=== PATIENT | male | born 1975 | race Two or more races ===

== ENCOUNTER 2021-03-21 12:35 | Outpatient (REF) | payer OTHER, SELFPAY ==
[2021-03-21 15:53] LABS: Binax Internal Control QC Valid; Binax Now Covid-19 Ag Positive (Negative)
== END 2021-03-21 12:36 | disposition home or self-care (01) ==
LOC: HO.LAB 12:35
PROVIDERS: Visit Provider Internal Medicine
DX: Z20.822 Contact with and (suspected) exposure to COVID-19 (principal)
CPT/HCPCS: C9803

== ENCOUNTER 2023-07-02 14:48 | Outpatient (AMB) | payer OTHER, SELFPAY ==
--- NOTE | 2023-07-02 14:49 | MHC.PC.OV ---
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 Accompanied by: Spouse Allergies No Known Allergies Allergy (Verified 07/02/23 14:56) Medication List - Last Reconciled 07/02/23 by Navneet Sood MD blood sugar diagnostic (FreeStyle Test strips) As directed glipizide 10 mg PO BID losartan 50 mg PO DAILY omeprazole 40 mg PO DAILY sitagliptin phosphate (Januvia) 50 mg PO DAILY sumatriptan succinate take 1 tab at onset of headache; if no relief may repeat 1 tab after at least 2 hrs; max = 4 tabs/24 hr PO Tobacco use date assessed: 07/02/23 Dental Screening Dental Screen Date: 07/02/23 Did you have a dental visit in the last 12 months?: Yes Did you have a dental problem in the last 6 months where you did not have access to dental care?: No Was dental information given to patient?: Patient has dentist 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 CPE > 1 yr Acute issue(s): Diabetes -A1c today 9.8%. Had been on metformin 1000mg before. Gynecomastia PMHx: Diabetes, Depression/anxiety, GERD, Migraines, Arthritis , hypertension SurgHx: FHx: SocHx: PFSH Medical History (Updated 07/02/23 @ 16:00 by Javier Morrow) Depression Anxiety Arthritis Acid reflux Migraines Diabetes Surgical History (Updated 07/02/23 @ 15:09 by Keara sEtrada CMA) No pertinent past surgical history Family History (Updated 07/02/23 @ 15:14 by Keara Estrada CMA) Mother Mental health disorder High blood pressure Diabetes Maternal Aunt Mental health disorder Sister Mental health disorder Father High blood pressure Cardiovascular disease Maternal Grandmother Diabetes Social History Housing: Apartment Patient Tobacco Use Status: Current everyday Tobacco user Cigarettes Per Day: 10 e-Cigarette/Vaping Use: Never Used service: No Current occupational status: employed 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 Cognitive needs: No Hearing needs: No Vision needs: Yes (Patient wears prescription glasses) Questionnaire PHQ-9 Over the last 2 weeks, how often have you been bothered by any of the following problems? 1. Little interest or pleasure in doing things: not at all 2. Feeling down, depressed, or hopeless: more than half the days 3. Trouble falling or staying asleep, or sleeping too much: not at all 4. Feeling tired or having little energy: several days 5. Poor appetite or overeating: not at all 6. Feeling bad about yourself - or that you are a failure or have let yourself or your family down: several days 7. Trouble concentrating on things, such as reading the newspaper or watching television: not at all 8. Moving or speaking so slowly that other people could have noticed. Or the opposite - being so fidgety or restless that you have been moving around a lot more than usual: not at all 9. Thoughts that you would be better off or of hurting yourself in some way: not at all Total score: 4 Depression Screening Interpretation: Negative Depression Screening Done: Yes 79814 - PHQ-9 Billing: Yes Source: Developed by Drs. Hawk Feldman, Any Darby, Avinash Harrsi and colleagues, with an educational israel from [employer]. Thrive Questionnaire Date Thrive assessed: 07/02/23 I am a: Patient What is your living situation today?: I have a steady place to live Within the past 12 months, did the food you bought not last and you didn't have the money to get more?: Sometimes True Within the past 12 months, did you worry whether your food would run out before you got money to buy more?: Sometimes True Do you have trouble paying for medicines?: Yes Do you have trouble getting transportation to medical appointments?: No Do you have trouble paying your heating and electricity bill?: No Do you have trouble taking care of your child, family member or friend?: No Do you have trouble with day-to-day activities such as bathing, preparing meals, shopping, managing finances, etc.?: No Are you currently unemployed and looking for a job?: No Are you interested in more education?: No THRIVE Score: 2 AUDIT C Alcohol Use Questionnaire (AUDIT-C) 1. How often do you have a drink containing alcohol?: Monthly or less 2. How many drinks containing alcohol do you have on a typical day when you are drinking?: 3 or 4 3. How often do you have six or more drinks on one occasion?: Never Total Score: 2 ANH-7 AMB Questionnaire ANH-7 Date ANH - 7 assessed: 07/02/23 Feeling nervous, anxious, or on edge: 1 = Several days Not being able to stop or control worryin = More than half the days Worrying too much about different things: 2 = More than half the days Trouble relaxin = Several days Being so restless that it is hard to sit still: 0 = Not at all Becoming easily annoyed or irritable: 1 = Several days Feeling afraid as if something awful might happen: 0 = Not at all Total ANH-7 score (0-4 normal; 5-9 mild; 10-14 moderate; 15-21 severe): 7 Source: Developed by Drs. Hawk Feldman, Any Darby, Avinash Harris and colleagues, with an educational israel from [employer]. ANH-7 Assessment Billing ANH-7 Assessment Tool: ANH-7 Assessment 22185 Review of Systems Const Denies chills, Denies fatigue, Denies fever(s), Denies headache(s) and Denies weakness ENT Denies dizziness and Denies headache(s) Card Denies chest pain, Denies lightheadedness, Denies dyspnea and Denies other (Palpitations) Resp Denies cough, Denies dyspnea, Denies wheezing and Denies other ( shortness of breath) Musc Denies numbness and Denies tingling Neuro Denies dizziness, Denies headache(s), Denies numbness, Denies tingling, Denies paresthesias and Denies weakness Psych Denies anxiety and Denies depression Endo Denies fatigue Aller/Immun Denies wheezing Physical exam (Primary Care) Vital Signs: Last Vital Signs Pulse 88 07/02/23 14:52 BP 122/70 07/02/23 14:52 Pulse Ox 98 07/02/23 14:52 Oxygen Delivery Method Room Air 07/02/23 14:52 BMI result Body Mass Index 27.2 Tobacco/Smoking Status: Tobacco use Status Tobacco use date assessed 07/02/23 07/02/23 15:23 Patient Tobacco Use Status Current everyday Tobacco 07/02/23 15:23 e-Cigarette/Vaping Use Never Used 07/02/23 15:23 PHQ-9: PHQ-9 Score PHQ-9: Total score 4 07/02/23 15:32 Depression Screening Interpretation: Negative Thrive Assessment: Date of Thrive Assessment Date Thrive assessed 07/02/23 07/02/23 15:23 Const General: no acute distress and well developed Nutritional Appearance: well nourished Orientation/consciousness: patient oriented x3 HENMT Head: Yes normocephalic and Yes atraumatic Eyes General: appearance normal, both eyes and all related structures Pupils: Equal, round and reactive pupils present EOM: EOMs intact bilaterally Resp Effort & Inspection: normal respiratory effort Auscultation: clear to auscultation bilaterally Cardio Rate: regular rate Rhythm: regular rhythm Heart sounds: S1 normal heart sound present, S2 normal heart sound present, no gallops, no murmurs and no rubs Neuro General: patient oriented x3 and gait normal Cranial nerves: Yes Equal, round and reactive pupils present Psych Affect: normal affect Results AMB Hemoglobin A1c AMB Hemoglobin A1c 9.8 % Last Edit by Keara Estrada CMA on 07/02/23 15:32 Results Reviewed Results Reviewed: Laboratory Last Values Hgb A1c (Clinic) 9.8 % (4.0-6.0) H 07/02/23 15:30 Assessment and Plan Assessment & Plan (1) Body aches: Code(s): R52 - Pain, unspecified Plan: As?above Follow-up?labs Will?continue?to?follow (2) Uncontrolled diabetes mellitus with hyperglycemia: Code(s): E11.65 - Type 2 diabetes mellitus with hyperglycemia Plan: A1c?9.8%?today.??He?says?it?was?higher?at?a?prior?check. Says?it?had?gotten?up?down?to?about?7.7%?which?is?still?poor?control. Continue?glipizide?and?Januvia. Resume?metformin?750?mg?b.i.d.?though?he?will?titrate?up?from?lower?doses. Will?follow-up?at?his?next?visit?to?see?if?he?was?able?to?get?to?750?mg?b.i.d..??He?was?not?able?to?tolerate?1000?mg?b.i.d.. Work?on?diabetic?diet. Work?on?consistency?with?medications Encouraged?him?to?test?at?least?in?the?mornings.??Asked?him?to?bring?in?a?log?of?his?morning?blood?sugars?and?any?other?blood?sugar?testing?he?does. (3) Gynecomastia: Code(s): N62 - Hypertrophy of breast Plan: A?right?breast?gynecomastia Check?labs?including?prolactin?and?testosterone Check?mammogram (4) Cervicalgia: Code(s): M54.2 - Cervicalgia Plan: Cervicalgia?and?body?as?well?as?lower?extremity?neuropathic?pain. Neck?and?posterior?scalp?pain?appears?to?be?secondary?to?muscle?tension?and?strain Start?physical?therapy Will?follow-up?in?continue?to?work?on?this?with (5) Migraines: Code(s): G43.909 - Migraine, unspecified, not intractable, without status migrainosus Plan: Follow-up?with?Neurology (6) Laboratory exam ordered as part of routine general medical examination: Code(s): Z00.00 - Encounter for general adult medical examination without abnormal findings Plan: Check?labs Orders: Orders Comprehensive [place]. Panel Fast Today Z00.00 - Encounter for general adult medical examination without abnormal findings Complete Blood Count Auto Diff Today Z00.00 - Encounter for general adult medical examination without abnormal findings Microalbumin, Random (w Creat) Today I10 - Essential (primary) hypertension Prostate Specific Antigen Scr Today Z12.5 - Encounter for screening for malignant neoplasm of prostate Erythrocyte Sedimentation Rate Today R52 - Pain, unspecified CRP High Sensitivity Today R52 - Pain, unspecified Prolactin Today N62 - Hypertrophy of breast MM diagnostic mammo BI Today N62 - Hypertrophy of breast AMB Hemoglobin A1c Today Z13.9 - Encounter for screening, unspecified Lipid Panel Today Z00.00 - Encounter for general adult medical examination without abnormal findings UA and rflx microscopic Today Z00.00 - Encounter for general adult medical examination without abnormal findings TSH reflex Free T4 Today Z00.00 - Encounter for general adult medical examination without abnormal findings Vitamin D 25-OH Total Today E55.9 - Vitamin D deficiency, unspecified Testosterone, Free/Total Today N62 - Hypertrophy of breast US breast RT complete Today N62 - Hypertrophy of breast Coding Level of Care Code New Pt Level 4 (32017) Diagnoses Body aches R52 Uncontrolled diabetes mellitus with hyperglycemia E11.65 Gynecomastia N62 Cervicalgia M54.2 Migraines G43.909 Laboratory exam ordered as part of routine general medical examination Z00.00 Additional Codes ANH-7 Assessment Billing - ANH-7 Assessment Tool: ANH-7 Assessment [id number] ([id number])
[2023-07-02 14:52] VITALS: BP 122/70; PULSE 88; O2SAT 98; BMI 27.2
== END 2023-07-02 16:26 | disposition home or self-care (01) ==
PROVIDERS: PCP Family Medicine; Visit Provider Family Medicine
DX: E11.65 Type 2 diabetes mellitus with hyperglycemia (principal); N62 Hypertrophy of breast; M54.2 Cervicalgia; G43.909 Migraine, unspecified, not intractable, without status migrainosus
CPT/HCPCS: 83036; 99204

== ENCOUNTER 2023-07-16 13:43 | Outpatient (REF) | payer OTHER, SELFPAY ==
--- NOTE | ~2023-07-16 | US_ITS ---
EXAMINATION: MM DIAGNOSTIC DIGITAL BREAST TOMOSYNTHESIS, BILATERAL US BREAST LIMITED, RIGHT MAMMOGRAPHY: CLINICAL INFORMATION: 47-year-old male, right breast pain and swelling times approximately 1 month. COMPARISON: Mammography: No prior. TECHNIQUE: Digital breast tomosynthesis is performed in both the craniocaudal and mediolateral oblique views along with computer-aided detection (CAD). Synthesized 2D images are generated from the tomosynthesis. FINDINGS: The breasts are almost entirely fatty (ACR BI-RADS breast composition Category a). There is retroareolar flame like opacity in the right breast highly suggestive of gynecomastia. Left breast appears grossly normal mammographically. There are no masses, regions of architectural distortion, or suspicious calcification in either breast. ULTRASOUND: CLINICAL INFORMATION: Right breast swelling and tenderness. COMPARISON: None TECHNIQUE: Targeted sonographic evaluation of the right breast was performed using a high frequency linear transducer. The left retroareolar region was scanned for comparison. Selected archived documentation. FINDINGS: RIGHT BREAST: -There is moderate development normal-appearing retroareolar breast tissue on the right, findings consistent with right gynecomastia. There is a trace amount of left retroareolar breast tissue development. There is no mass, cystic abnormality, or abnormal shadowing. No skin thickening is noted. US/US breast RT limited mamm only IMPRESSION: -No findings suspicious for malignancy in either breast. -Moderate right and trace left male gynecomastia. Recommend clinical follow-up and management. OVERALL ASSESSMENT: Mammography: BI-RADS 2 - Benign Findings Ultrasound: BI-RADS 2 - Benign Findings RECOMMENDATION: 1. Patient should be managed based on the clinical impression. Findings communicated to the patient by the technologist.
== END 2023-07-16 13:44 | disposition home or self-care (01) ==
LOC: HO.MAMMO 13:43
PROVIDERS: PCP Family Medicine; Visit Provider Family Medicine
DX: N62 Hypertrophy of breast (principal)
CPT/HCPCS: 76642; 77062; 77066

== ENCOUNTER → 2023-07-16 14:00 | Outpatient (BNV) | payer OTHER, SELFPAY | PROVIDERS: PCP Family Medicine; Visit Provider Radiology Diagnostic Radiology | DX: N64.4 Mastodynia (principal) | CPT/HCPCS: 76642; 77062; 77066 ==

== ENCOUNTER → 2023-11-15 15:22 | Outpatient (BNVA) | payer OTHER, SELFPAY | PROVIDERS: PCP Family Medicine; Visit Provider Physician Assistant Medical | DX: E11.65 Type 2 diabetes mellitus with hyperglycemia (principal); B35.1 Tinea unguium | CPT/HCPCS: 82947; 83036 ==

== ENCOUNTER → 2023-11-15 15:22 | Outpatient (AMB) | payer OTHER, SELFPAY ==
--- NOTE | 2023-11-15 15:30 | A.OFFVIS_ITS ---
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 He was diagnosed with diabetes about 10 years ago. He has a family history of Type II DM. Hemoglobin a1c 9.3% down from 9.8% 07/02/23. POC 286. Current medication regimen: Januvia 50 mg daily and Glipizide 10 mg twice daily. He was prescribed Metformin when he was first diagnosed. It caused diarrhea at high dosages. They lowered the dose. It was effective. Compliance issues: Ran out several weeks ago of one medication and has been out of the other for longer. He was only taking 10 mg of glipizide once a day. Diet: Breakfast-coffee with cream and sugar Vvpsm-[id number] all day Dinner-varies, always carbohydrates Snacks/desserts: chips, candy Occasional alcohol. Hypoglycemia symptoms: none Hyperglycemia symptoms: polyuria, polydipsia, headaches Eye exam: scheduled 11/15/23. Microvascular complications: neuropathy Macrovascular complications: none Hypertension: treated with Losartan 50 mg. ROS: Constitutional: No unexplained weight loss, fever, chills, fatigue or night sweats. Eyes: No vision changes, blurry vision, double vision, eye pain, eye redness, eye discharge. Respiratory: No shortness of breath, cough or sputum production. Cardiovascular: No chest pain, chest pressure or chest discomfort. No palpitations or pedal edema. Neurologic: No headache, dizziness, syncope, unilateral weakness, ataxia. Skin: No rash or open wounds. Endocrine: No cold or heat intolerance. Physical exam: Constitutional: Alert, in no distress. Eyes: Pupils are equal, round and reactive to light. Extraocular muscles intact. Ear, Nose and Throat: Canals clear. TMs normal. Normal nasal mucosa. No nasal discharge. No oral lesions. Neck: Supple, Full range of motion. No lymphadenopathy. No palpable thyroid masses. Respiratory: Clear to auscultation. Cardiovascular: S1 S2 regular. No murmurs. Right foot: Warm and well perfused. No clubbing, cyanosis or edema. DP pulse 3+. Mildly vibratory sensation. Intact sensation to monofilament. Onychomycosis of toenails. Left foot: Warm and well perfused. No clubbing, cyanosis or edema. DP pulse 3+. Mildly vibratory sensation. Intact sensation to monofilament. Onychomycosis of toenails. [facility] Medical History (Updated 11/15/23 @ 16:12 by DELMAR Morales) Diabetes, polyneuropathy Onychomycosis Uncontrolled type 2 diabetes mellitus with hyperglycemia Depression Anxiety Arthritis Acid reflux Migraines Diabetes Surgical History (Updated 07/02/23 @ 15:09 by Keara Estrada [facility]) No pertinent past surgical history Family History Mother Mental health disorder High blood pressure Diabetes Maternal Aunt Mental health disorder Sister Mental health disorder Father High blood pressure Cardiovascular disease Maternal Grandmother Diabetes Social History Housing: Apartment Patient Tobacco Use Status: Current everyday Tobacco user Cigarettes Per Day: 10 e-Cigarette/Vaping Use: Never Used service: No Current occupational status: employed 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 Cognitive needs: No Hearing needs: No Vision needs: Yes (Patient wears prescription glasses) Physical Exam Vital Signs: Last Vital Signs Pulse 95 11/15/23 15:34 BP 124/78 11/15/23 15:34 BMI result Body Mass Index 25.8 Results AMB Hemoglobin A1c AMB Hemoglobin A1c 9.3 % Last Edit by CARLOS Hollingsworth on 11/15/23 15:47 Results Reviewed Results Reviewed: Laboratory Tests 07/02/23 15:30 Hgb A1c (Clinic) 9.8 H Assessment & Plan Assessment & Plan (1) Uncontrolled type 2 diabetes mellitus with hyperglycemia: Code(s): E11.65 - Type 2 diabetes mellitus with hyperglycemia Category: Medical Plan: Discussed pathophysiology of Type II Diabetes Mellitus with the patient in detail.? I explained the usp risks and complications associated with uncontrolled diabetes including nephropathy, neuropathy, peripheral vascular disease, retinopathy, increased risk of heart disease and stroke.? Discussed lifestyle modification with the patient. Recommended 30 minutes of moderately vigorous exercise 5 days per week to promote weight loss. The patient declines referral to nutrition educator and dietitian. Stop Januvia. Start metformin extended release 500 mg once daily and increase to 500 mg twice daily after the 1st week. If he develops GI side effects on this he will contact the office. Start glipizide extended release 10 mg once a day. Patient advised to start checking blood sugars. He agrees. Freestyle Lite sent to the pharmacy. Reviewed proper treatment of hypo/hyperglycemia. (2) Onychomycosis: Code(s): B35.1 - Tinea unguium Category: Medical Plan: Refer to podiatry. Plan Follow up in 3 months for diabetes. Orders: Orders AMB Hemoglobin A1c Today E11.65 - Type 2 diabetes mellitus with hyperglycemia Referrals Podiatry Referral B35.1 - Tinea unguium, E11.42 - Type 2 diabetes mellitus with diabetic polyneuropathy Medications: New glipizide ER 10 mg PO DAILY 90 tabs 3RF metformin ER Take 1 tab po qam x 1 week then increase 1 tab po bid 500 mg PO BID 180 tabs 3RF blood-glucose meter (FreeStyle Lite Meter kit) as directed to monitor BG 3 times daily 1 ea 0RF E11.9 - Type 2 diabetes mellitus without complications lancets (FreeStyle Lancets) Use as directed to monitor glucose 3 times daily 200 ea 5RF glipizide ER 10 mg PO DAILY 90 tabs 3RF metformin ER Take 1 tab po qam x 1 week then increase 1 tab po bid 500 mg PO BID 180 tabs 3RF blood sugar diagnostic (FreeStyle Lite Strips) As directed to check glucose 3 times daily 200 ea 5RF Patient Instructions: Remain off Januvia. Restart Glipize extended release 10 mg once daily. Start Metformin extended release 500 mg once daily with food for one week then increase to 1 pill twice daily. Please have fasting labwork completed. Coding Level of Care Code New Pt Level 4 (60241) Diagnoses Uncontrolled type 2 diabetes mellitus with hyperglycemia E11.65 Onychomycosis B35.1 Time Spent (min) 50 Comment Reviewing chart, direct patient care, completing documentation
[2023-11-15 15:34] VITALS: BP 124/78; PULSE 95; BMI 25.8
[2023-11-15 15:43] LABS: Glucose, Whole Blood 286 mg/dL (60-115)
== END ==
PROVIDERS: PCP Family Medicine; Visit Provider Physician Assistant Medical
DX: E11.65 Type 2 diabetes mellitus with hyperglycemia (principal); B35.1 Tinea unguium
CPT/HCPCS: 99204

== ENCOUNTER 2024-02-06 09:52 | Emergency (ER) | payer OTHER, SELFPAY ==
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
--- NOTE | ~2024-02-06 | CT_ITS ---
EXAMINATION: CT CERVICAL SPINE WITHOUT CONTRAST CLINICAL INFORMATION: Injury. COMPARISON: None available. TECHNIQUE: Contiguous axial images through the cervical spine using 3 mm collimation with bone and soft tissue algorithm. Sagittal and coronal reformatted images acquired. This CT examination was performed using dose optimization techniques as appropriate, variously including the following: *Automated exposure control *Adjustment of mA and/or kV according to patient size (this includes techniques or standardized protocols for targeted exams where dose is matched to indication/reason for exam; i.e. extremities or head) *Use of iterative reconstruction technique DLP: 510 mGy-cm FINDINGS: Craniocervical junction is intact. C1 is intact. C2 is intact. C3 is intact. C4 is intact. C5 is intact. C6 is intact. C7 is intact. No gross malalignment. Marginal osteophyte formation and disc desiccation seen in the anterior intervertebral disc height, C5-6 and C6-7. No gross prevertebral compartment hematoma. No lytic or blastic lesions. Tympanic cavities and mastoid air cells are aerated. The thyroid gland demonstrates no enlargement or dominant nodules. CT/CT cervical spine wo IV con IMPRESSION: No acute fracture or trauma-related listhesis. Spondylosis, C5-6 and C6-7 levels. Fleischner guidelines were followed. Electronically signed by: Albino Pang MD 02/06/2024 12:44 PM [facility]
[2024-02-06 10:02] VITALS: BP 145/84; PULSE 94; RESP 18; TEMP 36.7; O2SAT 99; BMI 26.0
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
[2024-02-06 13:07] VITALS: BP 145/84; PULSE 94; RESP 18; TEMP 36.7; O2SAT 99
== END 2024-02-06 13:08 | disposition home or self-care (01) ==
PROVIDERS: Emergency Provider Student in an Organized Health Care Education/Training Program; PCP Family Medicine
DX: S06.0X0A Concussion without loss of consciousness, initial encounter (principal); R51.9 Headache, unspecified; M54.2 Cervicalgia; Y04.2XXA Assault by strike against or bumped into by another person, initial encounter; Y93.9 Activity, unspecified; Y92.218 Other school as the place of occurrence of the external cause; Y99.0 Civilian activity done for income or pay; Z79.899 Other long term (current) drug therapy
CPT/HCPCS: 70450; 72125; 99282; 99284

== ENCOUNTER → 2024-02-06 11:00 | Outpatient (BNV) | payer OTHER, SELFPAY | PROVIDERS: Emergency Provider Student in an Organized Health Care Education/Training Program; PCP Family Medicine; Visit Provider Radiology Diagnostic Radiology | DX: R51.9 Headache, unspecified (principal); R11.0 Nausea | CPT/HCPCS: 70450; 72125 ==

== ENCOUNTER 2024-09-15 08:11 | Emergency (ER) | payer OTHER, SELFPAY ==
[2024-09-15] VITALS (7 sets, daily range): BP systolic 159–177; BP diastolic 76–104; PULSE 87–92; RESP 16–22; TEMP 36.4–36.9; O2SAT 98–100; BMI 26.5
--- NOTE | ~2024-09-15 | XR_ITS ---
EXAMINATION: XR CHEST CLINICAL INFORMATION: chest pain COMPARISON: None available. TECHNIQUE: Frontal view of the chest was obtained. FINDINGS: No significant abnormality is noted involving the heart, lungs, mediastinum, bony thorax or soft tissues. XR/XR chest 1V IMPRESSION: No acute disease. Electronically signed by: Jose Martin Miles MD 09/15/2024 11:05 AM EDT
--- NOTE | 2024-09-15 08:41 | ECG_ITS ---
Test Reason : chest pain Blood Pressure : */* mmHG Vent. Rate : 87 BPM Atrial Rate : 87 BPM P-R Int : 166 ms QRS Dur : 82 ms QT Int : 352 ms P-R-T Axes : 28 13 25 degrees QTcB Int : 423 ms Normal sinus rhythm Normal ECG No previous ECGs available Referred By: Generic ED Physician Electronically Signed By: GERARDO PORTER
[2024-09-15 09:11] LABS: Glucose, Whole Blood 358 mg/dL (60-115)
--- NOTE | 2024-09-15 09:40 | ED.GENADULT ---
HPI - General Adult General Chief complaint: Nausea/Vomiting/Diarrhea Stated complaint: CP, sob, vomiting Time Seen by Provider: 09/15/24 09:08 Source: patient, family, RN notes reviewed and old records reviewed Mode of arrival: ambulatory Limitations: no limitations History of Present Illness ED Provider: Negro HPI narrative: 48-year-old male past medical history significant for type 2 diabetes, history of migraines in his for evaluation of epigastric abdominal pain. He reports that his pain started this morning when he woke up, he has not eaten anything. He had associated nausea and vomiting. His pain radiates into his chest and is 10/10. She is feeling generally unwell. Denies any history abdominal surgeries Denies any history of coronary artery disease He denies any coughing, shortness of breath Denies any leg swelling Related Data Home Medications ?Medication ?Instructions ?Recorded ?Confirmed losartan 50 mg tablet 50 mg PO DAILY 07/02/23 07/02/23 omeprazole 40 mg capsule,delayed 40 mg PO DAILY 07/02/23 07/02/23 release sumatriptan succinate 50 mg tablet See Rx Instructions PO .COMPLEX 07/02/23 07/02/23 Previous Rx's ?Medication ?Instructions ?Recorded blood sugar diagnostic (FreeStyle #200 ea 11/15/23 Lite Strips) blood-glucose meter (FreeStyle #1 ea 11/15/23 Lite Meter kit) glipizide 10 mg tablet, extended 10 mg PO DAILY #90 tabs 11/15/23 release 24 hr lancets 28 gauge (FreeStyle #200 ea 11/15/23 Lancets) metformin 500 mg tablet,extended 500 mg PO BID #180 tabs 11/15/23 release 24 hr naproxen 500 mg tablet 500 mg PO BID PRN pain 7 days #14 02/06/24 tabs omeprazole 20 mg capsule,delayed 20 mg PO DAILY #14 caps 09/15/24 release ondansetron 4 mg disintegrating 4 mg PO Q8H PRN nausea and 09/15/24 tablet vomiting #20 tabs Allergies Allergy/AdvReac Type Severity Reaction Status Date / Time No Known Allergies Allergy Verified 09/15/24 08:39 Review of Systems Constitutional: Constitutional: Reports body ache(s), Denies chills, Denies fever(s), Denies headache(s), Reports lethargy, Reports malaise and Reports weight loss Eyes: Eyes: Denies blurry vision ENT: Denies dizziness and Denies headache(s) Cardiovascular: Cardiovascular: Reports chest pain, Reports chest pain at rest and Denies dyspnea on exertion Respiratory: Respiratory: Denies cough and Denies dyspnea on exertion Gastrointestinal: Gastrointestinal: Reports abdominal pain, Denies melena, Denies hematochezia, Reports nausea, Reports vomiting and Denies hematemesis Musculoskeletal: Musculoskeletal: Denies back pain Integumentary/Breasts: Skin/Breast: Denies rash Neurologic: Denies dizziness and Denies headache(s) Psychiatric: Psychiatric: Denies anxiety PMFSH Past Medical History Medical History (Updated 09/15/24 @ 13:24 by Pedro Tom) Diabetes, polyneuropathy Onychomycosis Uncontrolled type 2 diabetes mellitus with hyperglycemia Depression Anxiety Arthritis Acid reflux Migraines Diabetes Surgical History No pertinent past surgical history Family History Family History Mother Mental health disorder High blood pressure Diabetes Maternal Aunt Mental health disorder Sister Mental health disorder Father High blood pressure Cardiovascular disease Maternal Grandmother Diabetes Social History Social History Housing: Apartment Patient Tobacco Use Status: Current everyday Tobacco user Cigarettes Per Day: 10 e-Cigarette/Vaping Use: Never Used Advance Directives: No Advance Directives Information Provided: Yes Do you have a plan to hurt others: No Plan service: No Current occupational status: employed 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 Cognitive needs: No Hearing needs: No Vision needs: Yes (Patient wears prescription glasses) Physical Exam ED Vital Signs: Vital Signs - 24 hr 09/15/24 08:36 09/15/24 10:10 09/15/24 10:23 Temperature 98.5 F 98.3 F Pulse Rate 90 92 Respiratory Rate 22 H 16 18 Blood Pressure 177/104 H 170/76 H Pulse Oximetry 100 98 Oxygen Delivery Method Room Air Room Air 09/15/24 13:06 Temperature Pulse Rate 87 Respiratory Rate 16 Blood Pressure 159/81 H Pulse Oximetry 99 Oxygen Delivery Method Room Air BMI result Body Mass Index 26.5 Const General: healthy appearing, comfortable, alert and awake Nutritional Appearance: well nourished Orientation/consciousness: patient oriented x3 HENMT Head: Yes normocephalic and Yes atraumatic Eyes Eyelids: Yes eyelids normal Conjunctivae: conjunctivae normal Sclerae: sclerae normal Corneas: corneas normal Pupils: Equal, round and reactive pupils present EOM: EOMs intact bilaterally Neck Neck: Yes full ROM Resp Effort & Inspection: normal respiratory effort, able to speak in complete sentences, no audible wheezes and not labored Auscultation: clear to auscultation bilaterally Cardio Rate: regular rate Rhythm: regular rhythm GI Inspection: No distended Palpation (GI): Soft to palpation, not firm, Tenderness to palpation present (GI) in the epigastrum, in the LUQ and in the RUQ; not in the LLQ and not in the RLQ, Guarding due to palpation present (GI) (epigastric) in the LUQ and in the RUQ and not rigid Skin General skin exam: elasticity normal Neuro General: patient oriented x3 Cranial nerves: Yes Equal, round and reactive pupils present and Yes Bilaterally intact EOM present Cognition (Neuro): normal cognition Extrem Other: Moving all extremities well without any obvious deformities Course Reevaluation(s) Reevaluation #1: Patient reports feeling somewhat better, his pain is waxing and waning. I discussed possible CT imaging with the patient though he declines at this time which I feel is appropriate. I have a low suspicion for surgical abdomen. I suspect the patient's symptoms are related to GERD. We will discharge the patient with Zofran, omeprazole and he will be referred to GI for further evaluation and management. Return precautions were given Time: 13:22 Medications Administered Discontinued Medications Generic Name Dose Route Start Last Admin Trade Name Freq PRN Reason Stop Dose Admin Al Hydroxide/Mg Hydroxide 30 ml 09/15/24 12:36 09/15/24 12:59 Magnesium Hydrox/Alum Hydrox 30 Ml Oral.Susp PO 09/15/24 12:37 30 ml ONCE ONE Administration Droperidol 1.25 mg 09/15/24 09:20 09/15/24 09:41 Droperidol 5 Mg/2 Ml Vial IVPUSH 09/15/24 09:21 1.25 mg ONCE ONE Administration Sodium Chloride 1,000 mls @ 999 mls/hr 09/15/24 09:30 09/15/24 10:40 Ns IV 09/15/24 10:30 Infused .Q1H1M GOLDEN Infusion Insulin Human Regular 5 unit 09/15/24 09:20 09/15/24 09:38 Insulin Regular, Human 100 Unit/Ml 10 Ml Vial IVPUSH 09/15/24 09:21 5 unit ONCE ONE Administration Lidocaine HCl 15 ml 09/15/24 12:36 09/15/24 13:00 Lidocaine Hcl Viscous 2 % 15 Ml Solution MUCOUS MEM 09/15/24 12:37 15 ml ONCE ONE Administration Morphine Sulfate 4 mg 09/15/24 09:54 09/15/24 10:10 Morphine Sulfate 4 Mg/Ml Cartridge IVPUSH 09/15/24 09:55 4 mg ONCE ONE Administration Protocol Ondansetron HCl 4 mg 09/15/24 08:42 09/15/24 08:43 Ondansetron Odt 4 Mg Tab.Rapdis TRANSLINGU 09/15/24 08:43 4 mg ONCE ONE Administration Pantoprazole Sodium 40 mg 09/15/24 12:36 09/15/24 13:00 Pantoprazole Sodium 40 Mg/10 Ml Vial IVPUSH 09/15/24 12:37 40 mg ONCE ONE Administration Medical Decision Making Medical Decision Making MDM Narrative: 48-year-old male presents for evaluation of burning epigastric abdominal pain with associated nausea and vomiting and chest pain. Denies any history of cardiac disease. He is a diabetic and his glucose is elevated to 358. He is quite tender in the epigastric region on exam. However his abdomen is nondistended, no peritoneal signs. His clinical picture is quite consistent with a peptic ulce disease or cannabis hyperemesis syndrome. He is a diabetic with uncontrolled diabetes, DKA is possible, labs are pending. He is hypertensive, I have a very low suspicion for AAA given the burning pain that is described and nausea and vomiting. However it is still possible. Plan to treat with IV fluids, insulin and droperidol and consider advanced imaging pending labs and patient's clinical course. EKG is nonischemic, troponin is pending. Also in the differential includes biliary disease, liver disease bowel obstructions favored to be less likely as the patient has never had abdominal surgery before. Gastroenteritis and pancreatitis are also on the differential Differential Diagnosis Differential Diagnoses: The differential diagnosis associated with the presentation includes As above Admission/Observation Consideration of admission/observation: Escalation of care including admission/observation considered Lab Data 09/15/24 10:29 09/15/24 10:29 Labs: Lab Results 09/15/24 09/15/24 09/15/24 Range/Units 08:56 09:07 10:29 WBC 10.7 (4.8-10.8) X10*3/uL RBC 4.49 L (4.60-5.80) X10*6/uL Hgb 13.5 L (14.0-18.0) g/dl Hct 38.0 L (42.0-52.0) % MCV 84.6 (80.0-98.0) fL MCH 30.1 (27.0-33.0) pg MCHC 35.5 (31.0-36.0) g/dl RDW 11.9 (11.0-16.0) % Plt Count 257 (160-400) X10*3/uL MPV 10.9 (9.4-12.4) fL Immature Gran % (Auto) 0.6 H (0.0-0.4) % Neut % (Auto) 86.8 H (45-73) % Lymph % (Auto) 8.8 L (20-40) % [place] % (Auto) 2.5 (2-11) % Eos % (Auto) 0.6 (0-4) % Baso % (Auto) 0.7 (0-2) % Lymph # (Auto) 0.9 L (1.2-4.9) X10*3/uL [place] # (Auto) 0.3 (0.1-1.2) X10*3/uL Eos # (Auto) 0.1 (0.0-0.4) X10*3/uL Baso # (Auto) 0.1 (0.0-0.2) X10*3/uL Abs Immat Gran (auto) 0.06 H (0.00-0.03) X10*3/uL Absolute Neuts (auto) 9.3 H (2.0-8.3) x10*3/uL Absolute Nucleated RBC 0.000 (0.0-0.012) X10*3/uL Nucleated RBC % (auto) 0.0 (0.0-0.2) /100WBC VBG pH (7.32-7.43) VBG pCO2 mmHg VBG pO2 mmHg VBG HCO3 (22-26) mmol/L VBG O2 Saturation % VBG Base Excess mmol/L Sodium 140 (135-145) mmol/L Potassium 4.4 (3.3-5.1) mmol/L Chloride 105 (96-108) mmol/L Carbon Dioxide 26 (22-29) mmol/L Anion Gap 13 (12-20) BUN 19 H (9-16) mg/dL Creatinine 0.85 (0.5-1.4) mg/dL Estim Creat Clear Calc 115.6 Estimated GFR > 60 POC Glucose 358 H* (60-115) mg/dL Random Glucose 399 H* (60-115) mg/dL Calcium 8.9 (8.4-10.2) mg/dL Magnesium 1.8 (1.6-2.6) mg/dL Total Bilirubin 0.8 (0.0-1.0) mg/dL Direct Bilirubin (0.0-0.5) mg/dL AST (5-37) U/L ALT (0-40) U/L Alkaline Phosphatase (39-117) U/L Troponin I High Sens (<3.5-35.0) ng/L Total Protein (6.5-8.0) g/dL Albumin (3.5-5.0) g/dL Beta-Hydroxybutyrate (0.02-0.27) mmol/L Urine Color Urine Appearance Urine pH (5.0-9.0) Ur Specific [place] (1.005-1.025) Urine Protein (Neg-Trace) mg/dL Urine Glucose (UA) (Negative) mg/dL Urine Ketones (Negative) mg/dL Urine Blood (Negative) Urine Nitrite (Negative) Ur Leukocyte Esterase (Negative) Influenza Type A (PCR) NEGATIVE (Negative) Influenza Type B (PCR) NEGATIVE (Negative) RSV RNA Qual (PCR) NEGATIVE (Negative) SARS-CoV-2 RNA (RT-PCR) NEGATIVE (Negative) 09/15/24 09/15/24 09/15/24 Range/Units 10:29 10:29 10:29 WBC (4.8-10.8) X10*3/uL RBC (4.60-5.80) X10*6/uL Hgb (14.0-18.0) g/dl Hct (42.0-52.0) % MCV (80.0-98.0) fL MCH (27.0-33.0) pg MCHC (31.0-36.0) g/dl RDW (11.0-16.0) % Plt Count (160-400) X10*3/uL MPV (9.4-12.4) fL Immature Gran % (Auto) (0.0-0.4) % Neut % (Auto) (45-73) % Lymph % (Auto) (20-40) % [place] % (Auto) (2-11) % Eos % (Auto) (0-4) % Baso % (Auto) (0-2) % Lymph # (Auto) (1.2-4.9) X10*3/uL [place] # (Auto) (0.1-1.2) X10*3/uL Eos # (Auto) (0.0-0.4) X10*3/uL Baso # (Auto) (0.0-0.2) X10*3/uL Abs Immat Gran (auto) (0.00-0.03) X10*3/uL Absolute Neuts (auto) (2.0-8.3) x10*3/uL Absolute Nucleated RBC (0.0-0.012) X10*3/uL Nucleated RBC % (auto) (0.0-0.2) /100WBC VBG pH (7.32-7.43) VBG pCO2 mmHg VBG pO2 mmHg VBG HCO3 (22-26) mmol/L VBG O2 Saturation % VBG Base Excess mmol/L Sodium (135-145) mmol/L Potassium (3.3-5.1) mmol/L Chloride (96-108) mmol/L Carbon Dioxide (22-29) mmol/L Anion Gap (12-20) BUN (9-16) mg/dL Creatinine (0.5-1.4) mg/dL Estim Creat Clear Calc Estimated GFR POC Glucose (60-115) mg/dL Random Glucose (60-115) mg/dL Calcium (8.4-10.2) mg/dL Magnesium (1.6-2.6) mg/dL Total Bilirubin 0.8 (0.0-1.0) mg/dL Direct Bilirubin 0.2 (0.0-0.5) mg/dL AST 17 16 (5-37) U/L ALT 16 16 (0-40) U/L Alkaline Phosphatase 109 (39-117) U/L Troponin I High Sens (<3.5-35.0) ng/L Total Protein (6.5-8.0) g/dL Albumin (3.5-5.0) g/dL Beta-Hydroxybutyrate (0.02-0.27) mmol/L Urine Color Urine Appearance Urine pH (5.0-9.0) Ur Specific [place] (1.005-1.025) Urine Protein (Neg-Trace) mg/dL Urine Glucose (UA) (Negative) mg/dL Urine Ketones (Negative) mg/dL Urine Blood (Negative) Urine Nitrite (Negative) Ur Leukocyte Esterase (Negative) Influenza Type A (PCR) (Negative) Influenza Type B (PCR) (Negative) RSV RNA Qual (PCR) (Negative) SARS-CoV-2 RNA (RT-PCR) (Negative) 09/15/24 09/15/24 09/15/24 Range/Units 10:29 10:29 10:29 WBC (4.8-10.8) X10*3/uL RBC (4.60-5.80) X10*6/uL Hgb (14.0-18.0) g/dl Hct (42.0-52.0) % MCV (80.0-98.0) fL MCH (27.0-33.0) pg MCHC (31.0-36.0) g/dl RDW (11.0-16.0) % Plt Count (160-400) X10*3/uL MPV (9.4-12.4) fL Immature Gran % (Auto) (0.0-0.4) % Neut % (Auto) (45-73) % Lymph % (Auto) (20-40) % [place] % (Auto) (2-11) % Eos % (Auto) (0-4) % Baso % (Auto) (0-2) % Lymph # (Auto) (1.2-4.9) X10*3/uL [place] # (Auto) (0.1-1.2) X10*3/uL Eos # (Auto) (0.0-0.4) X10*3/uL Baso # (Auto) (0.0-0.2) X10*3/uL Abs Immat Gran (auto) (0.00-0.03) X10*3/uL Absolute Neuts (auto) (2.0-8.3) x10*3/uL Absolute Nucleated RBC (0.0-0.012) X10*3/uL Nucleated RBC % (auto) (0.0-0.2) /100WBC VBG pH (7.32-7.43) VBG pCO2 mmHg VBG pO2 mmHg VBG HCO3 (22-26) mmol/L VBG O2 Saturation % VBG Base Excess mmol/L Sodium (135-145) mmol/L Potassium (3.3-5.1) mmol/L Chloride (96-108) mmol/L Carbon Dioxide (22-29) mmol/L Anion Gap (12-20) BUN (9-16) mg/dL Creatinine (0.5-1.4) mg/dL Estim Creat Clear Calc Estimated GFR POC Glucose (60-115) mg/dL Random Glucose (60-115) mg/dL Calcium (8.4-10.2) mg/dL Magnesium (1.6-2.6) mg/dL Total Bilirubin (0.0-1.0) mg/dL Direct Bilirubin (0.0-0.5) mg/dL AST (5-37) U/L ALT (0-40) U/L Alkaline Phosphatase 109 (39-117) U/L Troponin I High Sens 4.1 (<3.5-35.0) ng/L Total Protein 6.5 6.6 (6.5-8.0) g/dL Albumin 4.1 4.2 (3.5-5.0) g/dL Beta-Hydroxybutyrate 0.30 H (0.02-0.27) mmol/L Urine Color Urine Appearance Urine pH (5.0-9.0) Ur Specific [place] (1.005-1.025) Urine Protein (Neg-Trace) mg/dL Urine Glucose (UA) (Negative) mg/dL Urine Ketones (Negative) mg/dL Urine Blood (Negative) Urine Nitrite (Negative) Ur Leukocyte Esterase (Negative) Influenza Type A (PCR) (Negative) Influenza Type B (PCR) (Negative) RSV RNA Qual (PCR) (Negative) SARS-CoV-2 RNA (RT-PCR) (Negative) 09/15/24 09/15/24 09/15/24 Range/Units 10:39 12:02 13:08 WBC (4.8-10.8) X10*3/uL RBC (4.60-5.80) X10*6/uL Hgb (14.0-18.0) g/dl Hct (42.0-52.0) % MCV (80.0-98.0) fL MCH (27.0-33.0) pg MCHC (31.0-36.0) g/dl RDW (11.0-16.0) % Plt Count (160-400) X10*3/uL MPV (9.4-12.4) fL Immature Gran % (Auto) (0.0-0.4) % Neut % (Auto) (45-73) % Lymph % (Auto) (20-40) % [place] % (Auto) (2-11) % Eos % (Auto) (0-4) % Baso % (Auto) (0-2) % Lymph # (Auto) (1.2-4.9) X10*3/uL [place] # (Auto) (0.1-1.2) X10*3/uL Eos # (Auto) (0.0-0.4) X10*3/uL Baso # (Auto) (0.0-0.2) X10*3/uL Abs Immat Gran (auto) (0.00-0.03) X10*3/uL Absolute Neuts (auto) (2.0-8.3) x10*3/uL Absolute Nucleated RBC (0.0-0.012) X10*3/uL Nucleated RBC % (auto) (0.0-0.2) /100WBC VBG pH 7.36 (7.32-7.43) VBG pCO2 43 mmHg VBG pO2 44 mmHg VBG HCO3 25 (22-26) mmol/L VBG O2 Saturation 66.0 % VBG Base Excess -0.1 mmol/L Sodium (135-145) mmol/L Potassium (3.3-5.1) mmol/L Chloride (96-108) mmol/L Carbon Dioxide (22-29) mmol/L Anion Gap (12-20) BUN (9-16) mg/dL Creatinine (0.5-1.4) mg/dL Estim Creat Clear Calc Estimated GFR POC Glucose 362 H* (60-115) mg/dL Random Glucose (60-115) mg/dL Calcium (8.4-10.2) mg/dL Magnesium (1.6-2.6) mg/dL Total Bilirubin (0.0-1.0) mg/dL Direct Bilirubin (0.0-0.5) mg/dL AST (5-37) U/L ALT (0-40) U/L Alkaline Phosphatase (39-117) U/L Troponin I High Sens (<3.5-35.0) ng/L Total Protein (6.5-8.0) g/dL Albumin (3.5-5.0) g/dL Beta-Hydroxybutyrate (0.02-0.27) mmol/L Urine Color Yellow Urine Appearance Clear Urine pH 6.5 (5.0-9.0) Ur Specific [place] 1.025 (1.005-1.025) Urine Protein Trace (Neg-Trace) mg/dL Urine Glucose (UA) >=1000 H (Negative) mg/dL Urine Ketones 15 (Negative) mg/dL Urine Blood Trace H (Negative) Urine Nitrite Negative (Negative) Ur Leukocyte Esterase Negative (Negative) Influenza Type A (PCR) (Negative) Influenza Type B (PCR) (Negative) RSV RNA Qual (PCR) (Negative) SARS-CoV-2 RNA (RT-PCR) (Negative) Discharge Plan Discharge Clinical Impression: Abdominal pain Patient Disposition: Home, Self-Care Instructions: GERD (Gastroesophageal Reflux Disease) (ED), Abdominal Pain (ED) Additional Instructions: Your workup in the ER today was reassuring. I suspect your abdominal pain is related to peptic ulcer disease or GERD. Take omeprazole daily for the next 2 weeks. Use Zofran as needed for nausea and vomiting I recommend that you follow up with GI at the number provided, you may benefit from an outpatient endoscopy. Return for new or worsening symptoms Prescriptions: New ondansetron 4 mg tablet,disintegrating 4 mg PO Q8H PRN (Reason: nausea and vomiting) Qty: 20 0RF omeprazole 20 mg capsule,delayed release(DR/EC) 20 mg PO DAILY Qty: 14 0RF No Action naproxen 500 mg tablet 500 mg PO BID PRN (Reason: pain) 7 Days Qty: 14 0RF losartan 50 mg tablet 50 mg PO DAILY sumatriptan succinate 50 mg tablet See Rx Instructions PO .COMPLEX Rx Instructions: take 1 tab at onset of headache; if no relief may repeat 1 tab after at least 2 hrs; max = 4 tabs/24 hr PO omeprazole 40 mg capsule,delayed release(DR/EC) 40 mg PO DAILY glipizide 10 mg tablet extended release 24hr 10 mg PO DAILY Qty: 90 3RF metformin 500 mg tablet extended release 24 hr 500 mg PO BID Qty: 180 3RF Rx Instructions: Take 1 tab po qam x 1 week then increase 1 tab po bid (DME) blood-glucose meter [FreeStyle Lite Meter] Kit See Rx Instructions .ROUTE .MEDSUPPLY Qty: 1 0RF Rx Instructions: as directed to monitor BG 3 times daily (DME) FreeStyle Lite Strips Strip See Rx Instructions .ROUTE .MEDSUPPLY Qty: 200 5RF Rx Instructions: As directed to check glucose 3 times daily (DME) lancets [FreeStyle Lancets] 28 gauge misc See Rx Instructions .ROUTE .MEDSUPPLY Qty: 200 5RF Rx Instructions: Use as directed to monitor glucose 3 times daily Referrals: [facility] [Provider Group, Gastroenterology] Referral Note: Hx of GERD, worsening pain Print Language: Romanian
[2024-09-15 09:47] LABS: Resp Syncy Virus RNA Qual PCR NEGATIVE (Negative); SARS COV2 PCR INHOUSE NEGATIVE (Negative)
--- OUTSIDE RECORDS SUMMARY | 2024-09-15 10:15 | XMS_ITS | Patient Health Record ---
[facility] Address [address] [place] [address] Care Team Providers Care Senior Buyer Name Role Phone Navneet Sood MD Primary Care Provider Suzan Sims Unavailable [phone] Reason For Referral No Information Encounters [facility]counter [facility] Date [facility] [address] [facility] Suzan Pineda Plan Of Treatment No Information Insurance Providers Payer Name Payer Address Payer Phone Subscriber Number Group Number Insured Name Patient Relationship to Insured Coverage Start Date Coverage End Date [employer] [address] Barbara [place]ott, [place] [phone] [id number] [place] Self - patient is the insured
[2024-09-15 10:36] LABS: MANUAL DIFF FLAG NO
[2024-09-15 10:42] LABS: Venous Blood Gas Refer to POC result
[2024-09-15 10:43] LABS: VBG HCO3 25 mmol/L (22-26); VBG O2 % Saturation 66.0 %
[2024-09-15 10:52] LABS: Hematocrit 38.0 % (42.0-52.0); Hemoglobin 13.5 g/dl (14.0-18.0); Imm Gran Abs Auto 0.06 X10*3/uL (0.00-0.03); Imm Gran Pct Auto 0.6 % (0.0-0.4); Lymphocytes Absolute Auto 0.9 X10*3/uL (1.2-4.9); Mean Corpuscular HGB Conc 35.5 g/dl (31.0-36.0); Mean Corpuscular Hemoglobin 30.1 pg (27.0-33.0); Mean Corpuscular Volume 84.6 fL (80.0-98.0); NRBC Abs Auto 0.000 X10*3/uL (0.0-0.012); NRBC Pct Auto 0.0 /100WBC (0.0-0.2); Platelet Count 257 X10*3/uL (160-400); Red Blood Count 4.49 X10*6/uL (4.60-5.80); White Blood Count 10.7 X10*3/uL (4.8-10.8)
[2024-09-15 10:58] LABS: Alanine Aminotransferase 16 U/L (0-40); Albumin Level 4.1 g/dL (3.5-5.0); Alkaline Phosphatase 109 U/L (39-117); Aspartate Amino Transferase 17 U/L (5-37); Total Protein 6.5 g/dL (6.5-8.0)
[2024-09-15 11:04] LABS: Alanine Aminotransferase 16 U/L (0-40); Albumin Level 4.2 g/dL (3.5-5.0); Alkaline Phosphatase 109 U/L (39-117); Anion Gap 13 (12-20); Aspartate Amino Transferase 16 U/L (5-37); Blood Urea Nitrogen 19 mg/dL (9-16); Calcium 8.9 mg/dL (8.4-10.2); Carbon Dioxide 26 mmol/L (22-29); Chloride 105 mmol/L (96-108); Creatinine Clr Calc Pharmacy 115.6; Estimated Glomerular Filt Rate > 60; Magnesium 1.8 mg/dL (1.6-2.6); Potassium 4.4 mmol/L (3.3-5.1); Sodium 140 mmol/L (135-145); Total Protein 6.6 g/dL (6.5-8.0)
[2024-09-15 11:05] LABS: Troponin-I High Sensitivity 4.1 ng/L (<3.5-35.0)
[2024-09-15 12:05] LABS: Glucose, Whole Blood 362 mg/dL (60-115)
[2024-09-15] MEDS: Magnesium Hydrox/Alum Hydrox 30 ML ORAL.SUSP PO (12:59)
[2024-09-15] MEDS: Lidocaine HCl Viscous 2 % 15 ML SOLUTION MUCOUS MEM (13:00)
[2024-09-15 13:20] LABS: Appearance Urine Clear; Glucose Urine UA >=1000 mg/dL (Negative); PH 6.5 (5.0-9.0); Specific Gravity - Urine 1.025 (1.005-1.025); UMIC TRIGGER UACC YES
[2024-09-15 13:31] LABS: Cannabinoid Screen Urine POSITIVE (Not Detect)
== END 2024-09-15 13:52 | disposition home or self-care (01) ==
PROVIDERS: Physician Assistant; Emergency Provider Emergency Medicine; PCP Family Medicine
DX: R10.13 Epigastric pain (principal); R07.9 Chest pain, unspecified; R06.02 Shortness of breath; R11.2 Nausea with vomiting, unspecified; E11.9 Type 2 diabetes mellitus without complications; Z79.899 Other long term (current) drug therapy
CPT/HCPCS: 36415; 71045; 80053; 80076; 80307; 81001; 82010; 82248; 82803; 82947; 83735; 84484; 85025; 87637; 93005; 96361; 96374; 96375; 99284; J1790; J2270; J2470

== ENCOUNTER → 2024-09-15 08:41 | Outpatient (BNV) | payer OTHER, SELFPAY | PROVIDERS: Emergency Provider Emergency Medicine; PCP Family Medicine; Visit Provider Internal Medicine | DX: R07.9 Chest pain, unspecified (principal) | CPT/HCPCS: 93010 ==

== ENCOUNTER → 2024-09-15 08:41 | Outpatient (BNV) | payer OTHER, SELFPAY | PROVIDERS: Emergency Provider Emergency Medicine; PCP Family Medicine; Visit Provider Radiology Diagnostic Radiology | DX: R07.9 Chest pain, unspecified (principal) | CPT/HCPCS: 71045 ==

== ENCOUNTER 2024-10-30 15:19 | Outpatient (AMB) | payer OTHER, SELFPAY ==
--- OUTSIDE RECORDS SUMMARY | 2024-05-07 04:30 | XMS_ITS ---
Author Organization [facility] Address [address] [place] [id number] Care Team Providers Care Health Safety Coordinator Name Role Phone Indigo CROFT, Navneet Primary Care Provider Suzan Sims Unavailable [phone] Encounters Encounter Location Date Provider Diagnosis [address] [address] 05/07/2024 Suzan Pineda Plan Of Treatment No Information Progress Notes * Helen RUELASOB:1975 (49 yo M)Acc No.[id number]:05/07/2024 Progress Notes Patient: Cale GIBBONS Provider: Sabine Pineda DPM :1975 A ge:48 Y S ex:Male Date:05/07/2024 Address:[address] [place], [place] [id number] Pcp:Navneet Sood MD Subjective: * Chief Complaints: [...] 0 05/07/2024 Generated for Leonidas redding/Natalia/Susanaitting on: 10/30/2024 03:22 PM EDT
--- OUTSIDE RECORDS SUMMARY | 2024-10-30 15:22 | XMS_ITS | Patient Health Record ---
[facility] Address [address] [place] [address] Care Team Providers Care Rail Walker Name Role Phone Navneet Sood MD Primary Care Provider Suzan Sims Unavailable [phone] Reason For Referral No Information Encounters Encounter [facility] Date [facility] [address] [facility] Suzan Pineda Plan Of Treatment No Information Insurance Providers Payer Name Payer Address Payer Phone Subscriber Number Group Number Insured Name Patient Relationship to Insured Coverage Start Date Coverage End Date [employer] [address] [place]ott, [place] [phone] [id number] [place] Self - patient is the insured
--- NOTE | 2024-10-30 15:26 | MHC.OFFVIS ---
Vital Signs 10/30/24 15:32 Height 5 ft 11 in Weight 182 lb 5.156 oz BMI 25.4 BP 94/54 L Blood Pressure Location Rt brachial Position Sitting Pulse 108 H Pulse Source Pulse Oximeter Pulse Oximetry (%) 98 Oxygen Delivery Method Room Air Intake Visit Reasons: T2DM Intake Note: Patient present today to follow up on Type 2 Diabetes Mellitus. Last Diabetic Eye exam: Over Due, requesting referral Last Podiatry Visit: Does not see a Armature Tester Random Glucose: 123 mg/dl Hgb A1C: 8.2% 10/30/2024 Pilot Boat Operator Required: No Accompanied by: Spouse Allergies No Known Allergies Allergy (Verified 10/30/24 15:32) Medication List - Last Reconciled 10/30/24 by DELMAR Morales blood sugar diagnostic (FreeStyle Lite Strips) As directed to check glucose 3 times daily blood-glucose meter (FreeStyle Lite Meter kit) as directed to monitor BG 3 times daily blood-glucose sensor (FreeStyle Teresa 3 Plus Sensor device) Apply 1 new sensor every 15 days as directed to monitor blood glucose continuously. blood-glucose,medical billing manager,cont (FreeStyle Teresa 3 [place]) Use daily to monitor blood glucose levels continuously. dulaglutide (Trulicity) 0.75 mg (0.5 mL) subcut QWEEK glipizide ER 10 mg PO DAILY lancets (FreeStyle Lancets) Use as directed to monitor glucose 3 times daily losartan 50 mg PO DAILY metformin ER 500 mg PO DAILY naproxen 500 mg PO BID PRN 7 days omeprazole 20 mg PO DAILY ondansetron 4 mg PO Q8H PRN sumatriptan succinate take 1 tab at onset of headache; if no relief may repeat 1 tab after at least 2 hrs; max = 4 tabs/24 hr PO HPI Comments Details: This is a 48 year old male with Type II DM and migraines presenting for diabetic management. He was last seen for his initial consult in November of 2023. He was diagnosed with diabetes about 11 years ago. He has a family history of Type II DM. The patient was in the hospital on 09/15/2024 for epigastric abdominal pain nausea, vomiting and diarrhea. Glucose was 399. Patient was not taking his medications at the time. Hemoglobin A1c today is 8.2%. Current medication regimen: Glipizide 10 mg daily, Metformin ER 500 mg daily (stomach upset at higher dose) Past medication: Geovanny Endorses 18 lb weight loss over the past year. Eats a lot of [employer], chicken tenders and Slovak fries. He is not having juice and soda. Drinks alcohol socially. Smokes 5 cigarettes per day. Hypoglycemia symptoms: none Hyperglycemia symptoms: polyuria, polydipsia, headaches, fatigue Microvascular complications: neuropathy Macrovascular complications: none Hypertension: treated with Losartan 50 mg. ROS: Constitutional: No unexplained weight loss, fever, chills, fatigue or night sweats. Eyes: No vision changes, blurry vision, double vision, eye pain, eye redness, eye discharge. Respiratory: No shortness of breath, cough or sputum production. Cardiovascular: No chest pain, chest pressure or chest discomfort. No palpitations or pedal edema. Neurologic: No headache, dizziness, syncope, unilateral weakness, ataxia. Skin: No rash or open wounds. Endocrine: No cold or heat intolerance. Physical exam: Constitutional: Alert, in no distress. Eyes: Pupils are equal, round and reactive to light. Extraocular muscles intact. Ear, Nose and Throat: Canals clear. TMs normal. Normal nasal mucosa. No nasal discharge. No oral lesions. Neck: Supple, Full range of motion. No lymphadenopathy. No palpable thyroid masses. Respiratory: Clear to auscultation. Cardiovascular: S1 S2 regular. No murmurs. [facility] Medical History (Updated 09/16/24 @ 00:00 by Cem Dadebra) Diabetes, polyneuropathy Onychomycosis Uncontrolled type 2 diabetes mellitus with hyperglycemia Depression Anxiety Arthritis Acid reflux Migraines Diabetes Surgical History No pertinent past surgical history Family History Mother Mental health disorder High blood pressure Diabetes Maternal Aunt Mental health disorder Sister Mental health disorder Father High blood pressure Cardiovascular disease Maternal Grandmother Diabetes Social History Housing: Apartment Patient Tobacco Use Status: Current everyday Tobacco user Cigarettes Per Day: 10 e-Cigarette/Vaping Use: Never Used service: No Current occupational status: employed 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 Cognitive needs: No Hearing needs: No Vision needs: Yes (Patient wears prescription glasses) Physical Exam Vital Signs: Last Vital Signs Pulse 108 H 10/30/24 15:32 BP 94/54 L 10/30/24 15:32 Pulse Ox 98 10/30/24 15:32 Oxygen Delivery Method Room Air 10/30/24 15:32 BMI result Body Mass Index 25.4 Results AMB Hemoglobin A1c AMB Hemoglobin A1c 8.2 % Last Edit by CARLOS Nunez on 10/30/24 15:52 Results Reviewed Results Reviewed: Laboratory Last Values Glucose (Clinic) 123 mg/dL (60-115) H 10/30/24 15:40 Laboratory Tests 11/15/23 09/15/24 15:45 10:29 Plt Count 257 Creatinine 0.85 Estimated GFR > 60 Hgb A1c (Clinic) 9.3 H AST 16 ALT 16 Assessment & Plan Assessment & Plan (1) Uncontrolled type 2 diabetes mellitus with hyperglycemia: Code(s): E11.65 - Type 2 diabetes mellitus with hyperglycemia Category: Medical Plan: Discussed pathophysiology of Type II Diabetes Mellitus with the patient in detail.? I explained the half-way risks and complications associated with uncontrolled diabetes including nephropathy, neuropathy, peripheral vascular disease, retinopathy, increased risk of heart disease and stroke.? Discussed lifestyle modification with the patient. Recommended 30 minutes of moderately vigorous exercise 5 days per week to promote weight loss. The patient declines referral to life skills educator and dietitian. Continue metformin extended release 500 mg daily and glipizide extended release 10 mg a day. Denies contraindications to GLP 1. Start Trulicity 0.75 mg weekly. Side effects and administration reviewed. If he develops low sugars he will stop metformin. Sent new glucometer, lancets and test strips to the pharmacy. Ordered CGM. I suspect hyperglycemia in September with secondary to noncompliance however given report of weight loss I will also check labs for type 1 diabetes. He denies family history of this. Referred for eye exam. Reviewed treatment of hypoglycemia with the patient. Plan Follow up in 1 month for diabetes. Orders: Orders Microalbumin, Random (w Creat) Today E11.42 - Type 2 diabetes mellitus with diabetic polyneuropathy, E11.65 - Type 2 diabetes mellitus with hyperglycemia, E11.9 - Type 2 diabetes mellitus without complications TSH reflex Free T4 Today E11.42 - Type 2 diabetes mellitus with diabetic polyneuropathy, E11.65 - Type 2 diabetes mellitus with hyperglycemia Islet Cell Antibody Scrn/Titer Today E11.42 - Type 2 diabetes mellitus with diabetic polyneuropathy, E11.65 - Type 2 diabetes mellitus with hyperglycemia AMB Hemoglobin A1c Today E11.65 - Type 2 diabetes mellitus with hyperglycemia Lipid Panel Today E11.42 - Type 2 diabetes mellitus with diabetic polyneuropathy, E11.65 - Type 2 diabetes mellitus with hyperglycemia, E78.5 - Hyperlipidemia, unspecified Vitamin B12 Today E11.42 - Type 2 diabetes mellitus with diabetic polyneuropathy, E11.65 - Type 2 diabetes mellitus with hyperglycemia, Z91.89 - Other specified personal risk factors, not elsewhere classified Glutamic acid decarboxylase Ab Today E11.42 - Type 2 diabetes mellitus with diabetic polyneuropathy, E11.65 - Type 2 diabetes mellitus with hyperglycemia C Peptide Today E11.42 - Type 2 diabetes mellitus with diabetic polyneuropathy, E11.65 - Type 2 diabetes mellitus with hyperglycemia Referrals Ophthalmology Referral E11.65 - Type 2 diabetes mellitus with hyperglycemia Medications: New dulaglutide (Trulicity) 0.75 mg (0.5 mL) subcut QWEEK 2 mL 2RF blood-glucose,medical billing manager,cont (FreeStyle Teresa 3 [place]) Use daily to monitor blood glucose levels continuously. 1 ea 0RF blood-glucose sensor (FreeStyle Teresa 3 Plus Sensor device) Apply 1 new sensor every 15 days as directed to monitor blood glucose continuously. 2 ea 11RF Changed From metformin ER Take 1 tab po qam x 1 week then increase 1 tab po bid 500 mg PO BID 180 tabs 3RF To metformin ER 500 mg PO DAILY Refilled blood-glucose meter (FreeStyle Lite Meter kit) as directed to monitor BG 3 times daily 1 ea 0RF E11.9 - Type 2 diabetes mellitus without complications blood sugar diagnostic (FreeStyle Lite Strips) As directed to check glucose 3 times daily 200 ea 5RF lancets (FreeStyle Lancets) Use as directed to monitor glucose 3 times daily 200 ea 5RF Patient Instructions: If you experience low blood sugar, treat this by eating a chewable fruit candy like skittles or jelly beans (about 8 pieces), 4 ounces (1/2 cup) of fruit juice (not diet), 1 tablespoon of honey or 4 glucose tablets. If your blood sugar is under 50, take double the amount of one of the above. Recheck your blood sugar in 15 minutes. Continue Metformin ER 500 mg once daily Continue Glipizide ER 10 mg daily Start Trulicity 0.75 mg weekly If you develop low blood sugars stop Metformin Coding Level of Care Code Est Pt Level 4 (42101) Complex EM visit Add On G2211 Diagnoses Uncontrolled type 2 diabetes mellitus with hyperglycemia E11.65
[2024-10-30 15:32] VITALS: BP 94/54; PULSE 108; O2SAT 98; BMI 25.4
[2024-10-30 15:46] LABS: Glucose, Whole Blood 123 mg/dL (60-115)
== END 2024-10-30 16:11 | disposition home or self-care (01) ==
LOC: HO.ENCR 15:20
PROVIDERS: PCP Family Medicine; Visit Provider Physician Assistant Medical
DX: E11.65 Type 2 diabetes mellitus with hyperglycemia (principal)

== ENCOUNTER → 2024-10-30 15:19 | Outpatient (BNVA) | payer OTHER, SELFPAY | PROVIDERS: PCP Family Medicine; Visit Provider Physician Assistant Medical | DX: E11.65 Type 2 diabetes mellitus with hyperglycemia (principal); E11.42 Type 2 diabetes mellitus with diabetic polyneuropathy; E78.5 Hyperlipidemia, unspecified; Z83.3 Family history of diabetes mellitus; Z79.4 Long term (current) use of insulin; Z79.84 Long term (current) use of oral hypoglycemic drugs | CPT/HCPCS: 82947; 83036 ==

== ENCOUNTER 2024-11-27 15:20 | Outpatient (AMB) | payer OTHER, SELFPAY ==
--- OUTSIDE RECORDS SUMMARY | 2024-05-07 04:30 | XMS_ITS ---
Author Organization [facility] Address [address] [place] [phone] Care Team Providers Care Senior Education Specialist Name Role Phone Indigo CROFT, Navneet Primary Care Provider Suzan Sims Unavailable [phone] Encounters Encounter Location Date Provider Diagnosis [address] [address] 05/07/2024 Suzan Pineda Plan Of Treatment No Information Progress Notes * Helen RUELASOB:1975 (49 yo M)Acc No.[id number]:05/07/2024 Progress Notes Patient: Cale GIBBONS Provider: Sabine Pineda DPM :1975 A ge:48 Y S ex:Male Date:05/07/2024 Address:[address] [place], [place] [id number] Pcp:Navneet Sood MD Subjective: * Chief Complaints: * * Medical History: Objective: * Vitals: Assessment: Plan: * Treatment: * Images: * The named appointment provid er may or may not be the originator of this progress note, and it is not deemed complete until electronically signed by the appointment provider. Sign off status: Pending * Provider: Sabine Pnieda DPM Date: 0 05/07/2024 Generated for Leonidas redding/Natalia/Susanaitting on: 0 11/27/2024 03:48 PM EDT
--- NOTE | 2024-11-27 15:25 | A.OFFVIS_ITS ---
Vital Signs 11/27/24 15:26 Height 5 ft 11 in Weight 182 lb 15.739 oz BMI 25.5 BP 120/80 Blood Pressure Location Rt brachial Position Sitting Pulse 89 Pulse Source Pulse Oximeter Pulse Oximetry (%) 98 Oxygen Delivery Method Room Air Intake Visit Reasons: Type II Diabetes Intake Note: Patient present today to follow up on Type 2 Diabetes Mellitus. Last Diabetic Eye exam: Over Due, requesting referral Last Podiatry Visit: Does not see a Associate Professor Of Philosophy Random Glucose: 177 mg/dL Hgb A1C: 8.2% 10/30/2024 Environmental Permitting Specialist Required: No Accompanied by: Self / Same As Patient Allergies No Known Allergies Allergy (Verified 11/27/24 15:26) Medication List - Last Reconciled 11/27/24 by DELMAR Morales blood sugar diagnostic (FreeStyle Lite Strips) As directed to check glucose 3 times daily blood-glucose meter (FreeStyle Lite Meter kit) as directed to monitor BG 3 times daily blood-glucose sensor (FreeStyle Teresa 3 Plus Sensor device) Apply 1 new sensor every 15 days as directed to monitor blood glucose continuously. blood-glucose,stock parts fabricator,cont (FreeStyle Teresa 3 [place]) Use daily to monitor blood glucose levels continuously. dulaglutide (Trulicity) 0.75 mg (0.5 mL) subcut QWEEK glipizide ER 10 mg PO DAILY lancets (FreeStyle Lancets) Use as directed to monitor glucose 3 times daily losartan 50 mg PO DAILY metformin ER 500 mg PO DAILY naproxen 500 mg PO BID PRN 7 days omeprazole 20 mg PO DAILY ondansetron 4 mg PO Q8H PRN sumatriptan succinate take 1 tab at onset of headache; if no relief may repeat 1 tab after at least 2 hrs; max = 4 tabs/24 hr PO HPI Comments Details: This is a 48 year old male with Type II DM and migraines presenting for diabetic management. He was diagnosed with diabetes about 11 years ago. He has a family history of Type II DM. Hemoglobin A1c 8.2% 10/30/24. Current medication regimen: Glipizide 10 mg daily, Metformin ER 500 mg daily (stomach upset at higher dose) Trulicity 0.75 mg was prescribed at his last visit, but it was almost 1200 dollars at the pharmacy. In reviewing the chart it does not look like a prior authorization request came in from the pharmacy. Past medication: Geovanny Endorses 18 lb weight loss over the past year, but his weight has stablized. He is trying to eat better but still has a lot of guard high carb foods in his diet. He is trying to incorporate more vegetables. He is not having juice and soda. Drinks alcohol socially. Smokes 5 cigarettes per day. Hypoglycemia symptoms: none Hyperglycemia symptoms: polyuria, polydipsia, headaches, fatigue Microvascular complications: neuropathy Macrovascular complications: none Hypertension: treated with Losartan 50 mg. ROS: Constitutional: No unexplained weight loss, fever, chills, fatigue or night sweats. Eyes: No vision changes, blurry vision, double vision, eye pain, eye redness, eye discharge. Respiratory: No shortness of breath, cough or sputum production. Cardiovascular: No chest pain, chest pressure or chest discomfort. No palpitations or pedal edema. Neurologic: No headache, dizziness, syncope, unilateral weakness, ataxia. Skin: No rash or open wounds. Endocrine: No cold or heat intolerance. Physical exam: Constitutional: Alert, in no distress. Eyes: Pupils are equal, round and reactive to light. Extraocular muscles intact. Neck: Supple, Full range of motion. No lymphadenopathy. No palpable thyroid masses. Respiratory: Clear to auscultation. Cardiovascular: S1 S2 regular. No murmurs. Feet: Patient declined exam [facility] Medical History Diabetes, polyneuropathy Onychomycosis Uncontrolled type 2 diabetes mellitus with hyperglycemia Depression Anxiety Arthritis Acid reflux Migraines Diabetes Surgical History No pertinent past surgical history Family History Mother Mental health disorder High blood pressure Diabetes Maternal Aunt Mental health disorder Sister Mental health disorder Father High blood pressure Cardiovascular disease Maternal Grandmother Diabetes Social History Housing: Apartment Patient Tobacco Use Status: Current everyday Tobacco user Cigarettes Per Day: 10 e-Cigarette/Vaping Use: Never Used service: No Current occupational status: employed 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 Cognitive needs: No Hearing needs: No Vision needs: Yes (Patient wears prescription glasses) Physical Exam Vital Signs: Last Vital Signs Pulse 89 11/27/24 15:26 BP 120/80 11/27/24 15:26 Pulse Ox 98 11/27/24 15:26 Oxygen Delivery Method Room Air 11/27/24 15:26 BMI result Body Mass Index 25.5 Results Reviewed Results Reviewed: Laboratory Last Values Glucose (Clinic) 177 mg/dL (60-115) H 11/27/24 15:32 Laboratory Tests 11/15/23 09/15/24 15:45 10:29 Plt Count 257 Creatinine 0.85 Estimated GFR > 60 Hgb A1c (Clinic) 9.3 H AST 16 ALT 16 Assessment & Plan Assessment & Plan (1) Uncontrolled type 2 diabetes mellitus with hyperglycemia: Code(s): E11.65 - Type 2 diabetes mellitus with hyperglycemia Category: Medical Plan: Discussed pathophysiology of Type II Diabetes Mellitus with the patient in det ail.? I explained the fdc risks and complications associated with uncontrolled diabetes including nephropathy, neuropathy, peripheral vascular disease, retinopathy, increased risk of heart disease and stroke.? Discussed lifestyle modification with the patient. Recommended 30 minutes of moderately vigorous exercise 5 days per week to promote weight loss. The patient declines referral to unit educator and dietitian. Continue metformin extended release 500 mg daily and glipizide extended release 10 mg a day. Resubmit Claudine and I sent a message to process the prior authorization. Advised patient to cigar packer and picker glucometer and supplies from the pharmacy. He needs a reliable way to monitor his blood sugars. Reviewed risks of hypoglycemia and treatment. CGM is not covered by insurance. Plan Follow up in 8 weeks. Medications: Refilled dulaglutide (Trulicity) 0.75 mg (0.5 mL) subcut QWEEK 2 mL 2RF Coding Level of Care Code Est Pt Level 4 (22111) Complex EM visit Add On G2211 Diagnoses Uncontrolled type 2 diabetes mellitus with hyperglycemia E11.65
[2024-11-27 15:26] VITALS: BP 120/80; PULSE 89; O2SAT 98; BMI 25.5
[2024-11-27 15:35] LABS: Glucose, Whole Blood 177 mg/dL (60-115)
--- OUTSIDE RECORDS SUMMARY | 2024-11-27 15:48 | XMS_ITS | Patient Health Record ---
[facility] Address [address] [place] [address] Care Team Providers Care [place] Consultant Name Role Phone Navneet Sood MD Primary Care Provider Suzan Sims Unavailable [phone] Reason For Referral No Information Encounters Encounter Location Date [facility] [address] [facility]/30/[facility] Suzan Pineda Plan Of Treatment No Information Insurance Providers Payer Name Payer Address Payer Phone Subscriber Number Group Number Insured Name Patient Relationship to Insured Coverage Start Date Coverage End Date [employer] [address] Barbara abbott, [place] [phone] [id number] [place] Self - patient is the insured
== END 2024-11-27 15:56 | disposition home or self-care (01) ==
LOC: HO.ENCR 15:20
PROVIDERS: PCP Family Medicine; Visit Provider Physician Assistant Medical
DX: E11.65 Type 2 diabetes mellitus with hyperglycemia (principal)

== ENCOUNTER → 2024-11-27 15:20 | Outpatient (BNVA) | payer OTHER, SELFPAY | PROVIDERS: PCP Family Medicine; Visit Provider Physician Assistant Medical | DX: E11.65 Type 2 diabetes mellitus with hyperglycemia (principal); Z79.85 Long-term (current) use of injectable non-insulin antidiabetic drugs; Z79.84 Long term (current) use of oral hypoglycemic drugs | CPT/HCPCS: 82947 ==

== ENCOUNTER 2024-11-28 08:13 | Outpatient (REF) | payer OTHER, SELFPAY ==
--- OUTSIDE RECORDS SUMMARY | 2024-05-07 04:30 | XMS_ITS ---
Author Organization [facility] Address [address] [place] [phone] Care Team Providers Care Hot Packer Name Role Phone Indigo CROFT, Navneet Primary Care Provider Suzan Sims Unavailable [phone] Encounters Encounter Location Date Provider Diagnosis [address] [address] 05/07/2024 Suzan Pineda Plan Of Treatment No Information Progress Notes * Helen RUELASOB:1975 (49 yo M)Acc No.[id number]:05/07/2024 Progress Notes Patient: Cale GIBBONS Provider: Sabine Pineda DPM :1975 A ge:48 Y S ex:Male Date:05/07/2024 Address:[address] [place], [place] [id number] Pcp:Navneet Sood MD Subjective: * Chief Complaints: [...] 05/07/2024 Generated for Leonidas redding/Natalia/Susanaitting on: 0 11/28/2024 08:16 AM EDT
--- OUTSIDE RECORDS SUMMARY | 2024-11-28 08:17 | XMS_ITS | Patient Health Record ---
[facility] Address [address] [place] [address] Care Team Providers Care It Operations Specialist Name Role Phone Navneet Sood MD Primary Care Provider Suzan Sims Unavailable [phone] Reason For Referral No Information Encounters Encounter [facility] [address] 04/30/[facility]24 Suzan Pineda Plan Of Treatment No Information Insurance Providers Payer Name Payer Address Payer Phone Subscriber Number Group Number Insured Name Patient Relationship to Insured Coverage Start Date Coverage End Date C[employer] [address] Barbara abbott, [place] [phone] [id number] [place] Self - patient is the insured
[2024-11-28 09:42] LABS: Microalbum/Creatinine Ratio Ur 64.9 ug/mg cr (<30)
[2024-11-28 09:43] LABS: Cholesterol 139 mg/dL (<200); HDL Cholesterol 28 mg/dL (>40); Triglycerides 208 mg/dL (<150)
[2024-11-28 09:55] LABS: Vitamin B12 358 pg/mL (200-900)
== END 2024-11-28 08:14 | disposition home or self-care (01) ==
LOC: HO.LAB 08:13
PROVIDERS: PCP Family Medicine; Visit Provider Physician Assistant Medical
DX: E11.42 Type 2 diabetes mellitus with diabetic polyneuropathy (principal); E11.65 Type 2 diabetes mellitus with hyperglycemia; E78.5 Hyperlipidemia, unspecified; Z91.89 Other specified personal risk factors, not elsewhere classified
CPT/HCPCS: 36415; 80061; 82043; 82570; 82607; 84443; 84681; 86341

== ENCOUNTER 2024-12-02 11:36 | Outpatient (AMB) | payer OTHER, SELFPAY ==
--- NOTE | 2024-12-02 11:40 | MHC.PC.OV ---
Vital Signs 12/02/24 11:44 Height 5 ft 11 in Weight 186 lb 2 oz BMI 26.0 BP 140/82 H Blood Pressure Location Rt brachial Position Sitting Respiration 16 Pulse 95 Pulse Source Pulse Oximeter Temp 98.1 F Temp Source Oral Pulse Oximetry (%) 99 Oxygen Delivery Method Room Air Intake Visit Reasons: dm/med check Intake Note: patient here for follow up on DM and med check Embedded Processor Required: No Allergies No Known Allergies Allergy (Verified 12/02/24 11:43) Medication List - Last Reconciled 12/02/24 by Navneet Sood MD blood sugar diagnostic (FreeStyle Lite Strips) As directed to check glucose 3 times daily blood-glucose meter (FreeStyle Lite Meter kit) as directed to monitor BG 3 times daily blood-glucose sensor (FreeStyle Teresa 3 Plus Sensor device) Apply 1 new sensor every 15 days as directed to monitor blood glucose continuously. blood-glucose,research program internship,cont (FreeStyle Teresa 3 [place]) Use daily to monitor blood glucose levels continuously. dulaglutide (Trulicity) 0.75 mg (0.5 mL) subcut QWEEK glipizide ER 10 mg PO DAILY lancets (FreeStyle Lancets) Use as directed to monitor glucose 3 times daily losartan 50 mg PO DAILY metformin ER 500 mg PO DAILY naproxen 500 mg PO BID PRN 7 days omeprazole 20 mg PO DAILY ondansetron 4 mg PO Q8H PRN sumatriptan succinate take 1 tab at onset of headache; if no relief may repeat 1 tab after at least 2 hrs; max = 4 tabs/24 hr PO Tobacco use date assessed: 12/02/24 Dental Screening Dental Screen Date: 12/02/24 Did you have a dental visit in the last 12 months?: Yes Did you have a dental problem in the last 6 months where you did not have access to dental care?: No Was dental information given to patient?: Patient has dentist HPI dm/med check HPI Details 49 y/o male presents to f/u diabetes. Recent A1c 8.2%. He is on Trulicity, glipizide 10mg, metformin 500mg daily. He notes ongoing difficulties with insurance covering Trulicity but pt notes he is able to pick it up on 12/07/24. Has been testing blood sugars at home - has recorded numbers in the 170s-180s. [facility] Medical History Diabetes, polyneuropathy Onychomycosis Uncontrolled type 2 diabetes mellitus with hyperglycemia Depression Anxiety Arthritis Acid reflux Migraines Diabetes Surgical History No pertinent past surgical history Family History Mother Mental health disorder High blood pressure Diabetes Maternal Aunt Mental health disorder Sister Mental health disorder Father High blood pressure Cardiovascular disease Maternal Grandmother Diabetes Social History Housing: Apartment Patient Tobacco Use Status: Current everyday Tobacco user Cigarettes Per Day: 10 e-Cigarette/Vaping Use: Never Used service: No Current occupational status: employed 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 Cognitive needs: No Hearing needs: No Vision needs: Yes (Patient wears prescription glasses) Questionnaire PHQ-9 Over the last 2 weeks, how often have you been bothered by any of the following problems? 1. Little interest or pleasure in doing things: not at all 2. Feeling down, depressed, or hopeless: not at all 3. Trouble falling or staying asleep, or sleeping too much: not at all 4. Feeling tired or having little energy: not at all 5. Poor appetite or overeating: not at all 6. Feeling bad about yourself - or that you are a failure or have let yourself or your family down: not at all 7. Trouble concentrating on things, such as reading the newspaper or watching television: not at all 8. Moving or speaking so slowly that other people could have noticed. Or the opposite - being so fidgety or restless that you have been moving around a lot more than usual: not at all 9. Thoughts that you would be better off or of hurting yourself in some way: not at all Total score: 0 Source: Developed by Drs. Hawk Feldman, Any Darby, Avinash Harris and colleagues, with an educational israel from [employer]. Thrive Questionnaire Date Thrive assessed: 11/29/24 I am a: Patient What is your living situation today?: I have a steady place to live Within the past 12 months, did the food you bought not last and you didn't have the money to get more?: Never true Within the past 12 months, did you worry whether your food would run out before you got money to buy more?: Never true Do you have trouble paying for medicines?: Yes Do you have trouble getting transportation to medical appointments?: No Do you have trouble paying your heating and electricity bill?: No Do you have trouble taking care of your child, family member or friend?: No Do you have trouble with day-to-day activities such as bathing, preparing meals, shopping, managing finances, etc.?: No Are you currently unemployed and looking for a job?: No Are you interested in more education?: No Please select the resources that you would like help with: Paying for medicine Currently or been in a relationship where the following occur: No concerns reported THRIVE Score: 0 AUDIT C Alcohol Use Questionnaire (AUDIT-C) 1. How often do you have a drink containing alcohol?: Monthly or less 2. How many drinks containing alcohol do you have on a typical day when you are drinking?: 1 or 2 3. How often do you have six or more drinks on one occasion?: Never Total Score: 1 ANH-7 AMB Questionnaire ANH-7 Date ANH - 7 assessed: 07/02/23 Feeling nervous, anxious, or on edge: 0 = Not at all Not being able to stop or control worryin = Not at all Worrying too much about different things: 0 = Not at all Trouble relaxin = Not at all Being so restless that it is hard to sit still: 0 = Not at all Becoming easily annoyed or irritable: 0 = Not at all Feeling afraid as if something awful might happen: 0 = Not at all Total ANH-7 score (0-4 normal; 5-9 mild; 10-14 moderate; 15-21 severe): 0 Source: Developed by Drs. Hawk Feldman, Any Darby, Avinash Harris and colleagues, with an educational israel from [employer]. Review of Systems Const Denies chills, Denies fatigue, Denies fever(s), Denies headache(s) and Denies weakness ENT Denies dizziness and Denies headache(s) Card Denies dyspnea Resp Denies cough, Denies dyspnea, Denies wheezing and Denies other (shortness of breath) Musc Denies numbness and Denies tingling Neuro Denies dizziness, Denies headache(s), Denies numbness, Denies tingling and Denies weakness Psych Denies anxiety and Denies depression Endo Denies fatigue Aller/Immun Denies wheezing Physical exam (Primary Care) Vital Signs: Last Vital Signs Temp 98.1 F 12/02/24 11:44 Pulse 95 12/02/24 11:44 Resp 16 12/02/24 11:44 BP 140/82 H 12/02/24 11:44 Pulse Ox 99 12/02/24 11:44 Oxygen Delivery Method Room Air 12/02/24 11:44 BMI result Body Mass Index 26.0 Tobacco/Smoking Status: Tobacco use Status Tobacco use date assessed 12/02/24 12/02/24 11:44 Patient Tobacco Use Status Current everyday Tobacco 12/02/24 11:42 e-Cigarette/Vaping Use Never Used 12/02/24 11:42 PHQ-9: PHQ-9 Score PHQ-9: Total score 0 12/02/24 11:54 Thrive Assessment: Date of Thrive Assessment Date Thrive assessed 11/29/24 12/02/24 11:42 Currently or been in a relationship where the following occur: No concerns reported Const General: well developed; No acute distress Nutritional Appearance: well nourished Orientation/consciousness: patient oriented x3 HENMT Head: Yes normocephalic and Yes atraumatic Eyes General: appearance normal, both eyes and all related structures Pupils: Equal, round and reactive pupils present EOM: EOMs intact bilaterally Resp Effort & Inspection: normal respiratory effort Neuro General: patient oriented x3 and gait normal Cranial nerves: Yes Equal, round and reactive pupils present Psych Affect: normal affect Coding Level of Care Code Est Pt Level 3 (35038) Diagnoses Uncontrolled type 2 diabetes mellitus with hyperglycemia E11.65 Assessment & Plan Assessment & Plan (1) Uncontrolled type 2 diabetes mellitus with hyperglycemia: Code(s): E11.65 - Type 2 diabetes mellitus with hyperglycemia Category: Medical Plan: Recent A1c 8.2%. He has been taking metformin 500 mg q.a.m. and glipizide 10 mg daily He had been unable to get Trulicity. Endocrinology is working on getting this approved. Patient says he still has not gotten the Trulicity and that he was told he could pick it up in 6 days Discussed with patient that he should have a contingency plan if he is unable to get the Trulicity. He will start Trulicity as soon as he is able to get it but if he is not able to pick this up, he will take metformin 500 mg in the morning and 250 mg before bed. He will continue glipizide Work at diabetic diet Encouraged more exercise He has an upcoming appointment with endocrinology in late January and I will follow-up with him a few weeks afterwards. Patient also notes that he does have an adult psychiatrist and saw him last year. I encouraged him to reach out for an appointment this year.
[2024-12-02 11:44] VITALS: BP 140/82; PULSE 95; RESP 16; TEMP 36.7; O2SAT 99; BMI 26.0
== END 2024-12-02 12:06 | disposition home or self-care (01) ==
LOC: HO.HMCFM 11:37
PROVIDERS: PCP Family Medicine; Visit Provider Family Medicine
DX: E11.65 Type 2 diabetes mellitus with hyperglycemia (principal)

== ENCOUNTER 2025-01-22 14:55 | Outpatient (AMB) | payer OTHER, SELFPAY ==
--- OUTSIDE RECORDS SUMMARY | 2024-05-07 03:30 | XMS_ITS ---
Author Organization [facility] Address [address] [place] [id number] Care Team Providers Care International Sourcing Manager Name Role Phone Indigo CROFT, Navneet Primary Care Provider Suzan Sims Unavailable [phone] Encounters Encounter Location Date Provider Diagnosis [address] [address] 05/07/2024 Suzan Pineda Plan Of Treatment No Information Progress Notes * Helen RUELASOB:1975 (49 yo M)Acc No.[id number]:05/07/2024 Progress Notes Patient: Cale GIBBONS Provider: Sabine Pineda DPM :1975 A ge:48 Y S ex:Male Date:05/07/2024 Address:[address] [place], [place] [id number] Pcp:Navneet Sood MD Subjective: * Chief Complaints: * * Medical History: Objective: * Vitals: Assessment: Plan: * Treatment: * Images: * The named appointment provid er may or may not be the originator of this progress note, and it is not deemed complete until electronically signed by the appointment provider. Sign off status: Pending * Provider: Sabine Pineda DPM Date: 0 05/07/2024 Generated for Leonidas redding/Natalia/Mike on: 03/24/2024 03:08 PM EST
--- NOTE | 2025-01-22 14:58 | A.OFFVIS_ITS ---
Vital Signs 01/22/25 15:01 Height 5 ft 11 in Weight 192 lb 14.472 oz BMI 26.9 BP 112/68 Blood Pressure Location Rt brachial Position Sitting Pulse 90 Pulse Source Pulse Oximeter Pulse Oximetry (%) 98 Oxygen Delivery Method Room Air Intake Visit Reasons: Type II Diabetes Intake Note: Patient present today to follow up on Type 2 Diabetes Mellitus. Last Diabetic Eye exam: Over Due, requesting referral closer Last Podiatry Visit: Does not see a [place] Random Glucose: 298 mg/dL Hgb A1C: 7.9% 01/22/2025 Signal Technician Required: No Accompanied by: Spouse Allergies No Known Allergies Allergy (Verified 01/22/25 15:03) HPI Comments Details: This is a 49 year old male with Type II DM and migraines presenting for diabetic management. He was diagnosed with diabetes about 11 years ago. He has a family history of Type II DM. Hemoglobin A1c 7.9% down from 8.2%. POC high today, but he ran out of [employer] last week. Does not have glucometer. Insurance does not cover CGM. Current medication regimen: Glipizide 10 mg daily, Metformin ER 500 mg daily (stomach upset at higher dose), Trulicity 0.75 mg started a month ago Initially had diarrhea on Trulicity which resolved. Past medication: Januvia He has a lot of high carbohydrate foods in his diet. He does not eat fruits and vegetables really. He saw the dietitian, but he is a picky eater. Drinks alcohol socially. Smokes 5 cigarettes per day. Hypoglycemia symptoms: none Hyperglycemia symptoms: polyuria, polydipsia, headaches, fatigue Microvascular complications: neuropathy, nephropathy (microalbuminuria) Macrovascular complications: none Hypertension: He stopped losartan several weeks ago. Blood pressure is normal. ROS: Constitutional: No unexplained weight loss, fever, chills, fatigue or night sweats. Eyes: No vision changes, blurry vision, double vision, eye pain, eye redness, eye discharge. Respiratory: No shortness of breath Cardiovascular: No chest pain Neurologic: No headache, dizziness, syncope, unilateral weakness, ataxia. Skin: No rash or open wounds. Endocrine: No cold or heat intolerance. Physical exam: Constitutional: Alert, in no distress. Neck: Supple, Full range of motion. No lymphadenopathy. No palpable thyroid masses. Respiratory: Clear to auscultation. Cardiovascular: S1 S2 regular. No murmurs. [facility] Medical History (Updated 12/04/24 @ 15:27 by Yesica Mcnamara, [facility]) Low HDL (under 40) Diabetes mellitus with microalbuminuria Diabetes, polyneuropathy Onychomycosis Uncontrolled type 2 diabetes mellitus with hyperglycemia Depression Anxiety Arthritis Acid reflux Migraines Diabetes Surgical History No pertinent past surgical history Family History Mother Mental health disorder High blood pressure Diabetes Maternal Aunt Mental health disorder Sister Mental health disorder Father High blood pressure Cardiovascular disease Maternal Grandmother Diabetes Social History Housing: Apartment Patient Tobacco Use Status: Current everyday Tobacco user Cigarettes Per Day: 10 e-Cigarette/Vaping Use: Never Used service: No Current occupational status: employed 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 Cognitive needs: No Hearing needs: No Vision needs: Yes (Patient wears prescription glasses) Physical Exam Vital Signs: Last Vital Signs Pulse 90 01/22/25 15:01 BP 112/68 01/22/25 15:01 Pulse Ox 98 01/22/25 15:01 Oxygen Delivery Method Room Air 01/22/25 15:01 BMI result Body Mass Index 26.9 Results AMB Hemoglobin A1c AMB Hemoglobin A1c 7.9 % Last Edit by CARLOS Nunez on 01/22/25 15:21 Results Reviewed Results Reviewed: Laboratory Last Values Glucose (Clinic) 298 mg/dL (60-115) H 01/22/25 15:08 Hgb A1c (Clinic) 7.9 % (4.0-6.0) H 01/22/25 15:11 Laboratory Tests 11/15/23 09/15/24 15:45 10:29 Plt Count 257 Creatinine 0.85 Estimated GFR > 60 Hgb A1c (Clinic) 9.3 H AST 16 ALT 16 Assessment & Plan Assessment & Plan (1) Uncontrolled type 2 diabetes mellitus with hyperglycemia: Code(s): E11.65 - Type 2 diabetes mellitus with hyperglycemia Category: Medical Plan: Discussed pathophysiology of Type II Diabetes Mellitus with the patient in detail.? I explained the longterm risks and complications associated with uncontrolled diabetes including nephropathy, neuropathy, peripheral vascular disease, retinopathy, increased risk of heart disease and stroke.? Discussed lifestyle modification with the patient. Recommended 30 minutes of moderately vigorous exercise 5 days per week to promote weight loss. The patient declines referral to senior health educator and dietitian. Increase Trulicity to 1.5 mg weekly. Continue metformin extended release 500 mg daily and glipizide extended release 10 mg a day. He would benefit from SGLT2 given microalbuminuria. We will check labs prior to next visit and discuss this at that time. Advised patient to fruit picker machine operator glucometer and supplies from the pharmacy. He needs a reliable way to monitor his blood sugars. Reviewed risks of hypoglycemia and treatment. He was instructed to call if he is not able to fruit picker machine operator the glucometer and test supplies. CGM is not covered by insurance. Plan Follow up in 8 weeks. Orders: Orders AMB Hemoglobin A1c Today E11.65 - Type 2 diabetes mellitus with hyperglycemia Lipid Panel 7 Weeks E11.65 - Type 2 diabetes mellitus with hyperglycemia, E78.5 - Hyperlipidemia, unspecified Creatinine 7 Weeks E11.65 - Type 2 diabetes mellitus with hyperglycemia, E11.9 - Type 2 diabetes mellitus without complications Alanine Aminotransferase 7 Weeks E11.65 - Type 2 diabetes mellitus with hyperglycemia Vitamin B12 7 Weeks E11.65 - Type 2 diabetes mellitus with hyperglycemia, Z91.89 - Other specified personal risk factors, not elsewhere classified Microalbumin, Random (w Creat) 7 Weeks E11.65 - Type 2 diabetes mellitus with hyperglycemia, E11.9 - Type 2 diabetes mellitus without complications Aspartate Amino Transferase 7 Weeks E11.65 - Type 2 diabetes mellitus with hyperglycemia Referrals Podiatry Referral B35.1 - Tinea unguium, E11.42 - Type 2 diabetes mellitus with diabetic polyneuropathy Medications: New dulaglutide (Trulicity) 1.5 mg (0.5 mL) subcut QWEEK 2 mL 2RF Changed From blood-glucose meter (FreeStyle Lite Meter kit) as directed to monitor BG 3 times daily 1 ea 0RF E11.9 - Type 2 diabetes mellitus without complications To blood-glucose meter (FreeStyle Lite Meter kit) as directed to monitor blood glucose twice daily 1 ea 0RF E11.9 - Type 2 diabetes mellitus without complications From blood sugar diagnostic (FreeStyle Lite Strips) As directed to check glucose 3 times daily 200 ea 5RF To blood sugar diagnostic (FreeStyle Lite Strips) as directed to monitor blood glucose twice daily 100 ea 5RF From lancets (FreeStyle Lancets) Use as directed to monitor glucose 3 times daily 200 ea 5RF To lancets (FreeStyle Lancets) as directed to monitor blood glucose twice daily 100 ea 5RF Discontinued blood-glucose,theology professor,cont (FreeStyle Teresa 3 [place]) Discontinued Reason: Doctor's Order Use daily to monitor blood glucose levels continuously. 1 ea 0RF blood-glucose sensor (FreeStyle Teresa 3 Plus Sensor device) Discontinued Reason: Doctor's Order Apply 1 new sensor every 15 days as directed to monitor blood glucose continuously. 2 ea 11RF dulaglutide (Trulicity) Discontinued Reason: Doctor's Order 0.75 mg (0.5 mL) subcut QWEEK 2 mL 2RF Coding Level of Care Code Est Pt Level 4 (10076) Diagnoses Uncontrolled type 2 diabetes mellitus with hyperglycemia E11.65
[2025-01-22 15:01] VITALS: BP 112/68; PULSE 90; O2SAT 98; BMI 26.9
--- OUTSIDE RECORDS SUMMARY | 2025-01-22 15:08 | XMS_ITS | Patient Health Record ---
[facility] Address [address] [place] [address] Care Team Providers Care Plow Holder Name Role Phone Navneet Sood MD Primary Care Provider Suzan Sims Unavailable [phone] Reason For Referral No Information Encounters Encounter [facility] Date [facility] [address] [facility] Suzan Pineda Plan Of Treatment No Information Insurance Providers Payer Name Payer Address Payer Phone Subscriber Number Group Number Insured Name Patient Relationship to Insured Coverage Start Date Coverage End Date [employer] [address] Barbara abbott, [id number] [id number] [place] Self - patient is the insured
[2025-01-22 15:13] LABS: Glucose, Whole Blood 298 mg/dL (60-115)
== END 2025-01-22 15:33 | disposition home or self-care (01) ==
LOC: HO.ENCR 14:56
PROVIDERS: PCP Family Medicine; Visit Provider Physician Assistant Medical
DX: E11.65 Type 2 diabetes mellitus with hyperglycemia (principal)

== ENCOUNTER → 2025-01-22 14:55 | Outpatient (BNVA) | payer OTHER, SELFPAY | PROVIDERS: PCP Family Medicine; Visit Provider Physician Assistant Medical | DX: E11.65 Type 2 diabetes mellitus with hyperglycemia (principal) | CPT/HCPCS: 82947; 83036 ==

== ENCOUNTER 2025-02-16 12:41 | Outpatient (REF) | payer OTHER, SELFPAY | END 2025-02-16 12:42 | disposition home or self-care (01) | LOC: HO.LNP 12:41 | PROVIDERS: PCP Family Medicine; Visit Provider Nurse Practitioner | DX: K21.9 Gastro-esophageal reflux disease without esophagitis (principal); R63.4 Abnormal weight loss; Z68.26 Body mass index [BMI] 26.0-26.9, adult; Z12.11 Encounter for screening for malignant neoplasm of colon | CPT/HCPCS: 83013 ==

== ENCOUNTER 2025-02-16 12:41 | Outpatient (AMB) | payer OTHER, SELFPAY ==
--- OUTSIDE RECORDS SUMMARY | 2024-05-07 03:30 | XMS_ITS ---
Author Organization [facility] Address [address] [place] [id number] Care Team Providers Care Field Education Coordinator Name Role Phone Indigo CROFT, Navneet Primary Care Provider Suzan Sims Unavailable [phone] Encounters Encounter Location Date Provider Diagnosis [address] [address] 05/07/2024 Suzan Pineda Plan Of Treatment No Information Progress Notes * Helen RUELASOB:1975 (49 yo M)Acc No.[id number]:05/07/2024 Progress Notes Patient: Cale GIBBONS Provider: Sabine Pineda DPM :1975 A ge:48 Y S ex:Male Date:05/07/2024 Address:[address] [place], [place] [id number] Pcp:Navneet Sood MD Subjective: * Chief Complaints: [...] 0 05/07/2024 Generated for Leonidas redding/Natalia/Mike on: 04/19/2024 04:27 PM EST
[2025-02-16 12:47] VITALS: BP 148/84; PULSE 94; BMI 26.9
--- NOTE | 2025-02-16 12:47 | A.OFFVIS_ITS ---
Vital Signs 02/16/25 12:47 Height 5 ft 11 in Weight 193 lb 1.999 oz BMI 26.9 BP 148/84 H Blood Pressure Location Rt brachial Position Sitting Pulse 94 Intake Visit Reasons: Initial eval s/p ED adm. GERD. EGD Consult Intake Note: New patient in office today for GERD. CC:Patient reports heartburn and acid reflux. Denies other GI symptoms today. Production Technologist Required: No Accompanied by: Self / Same As Patient Allergies No Known Allergies Allergy (Verified 02/16/25 12:49) HPI HPI Initial eval s/p ED adm. GERD. EGD Consult: Details: 49-year-old male here for initial evaluation of GERD. He is referred by Navneet Sood, and his fiancee who is a patient of mine as well. PMX Diabetes Migraines Cervicalgia GERD Depression with anxiety * SURGICAL HISTORY * ALLERGIES: NKDA * [place] LABS: Laboratory Tests 09/15/24 10:29 WBC 10.7 RBC 4.49 L Hgb 13.5 L Hct 38.0 L MCV 84.6 MCH 30.1 Plt Count 257 Estimated GFR > 60 Total Bilirubin 0.8 Direct Bilirubin 0.2 AST 16 ALT 16 Alkaline Phosphatase 109 CORRESPONDENCE On 10/30/24 @ 11:11 Mau Sparrow Wrote To Diana Magallon Booked him for you. Let me know if you need anything else from me. On 10/30/24 @ 08:33 Diana Magallon Wrote To Mau Sparrow December would be better. On 10/28/24 @ 16:56 Mau Sparrow Wrote To Diana Magallon I could find something for you in like December or January. Is that OK? On 10/28/24 @ 16:51 Diana Magallon Wrote To Mau Sparrow Please see if you can schedule this pt with me for a new visit. Is in our system. Not urgent but in the near future. TODAY'S VISIT [facility] Medical History Low HDL (under 40) Diabetes mellitus with microalbuminuria Diabetes, polyneuropathy Onychomycosis Uncontrolled type 2 diabetes mellitus with hyperglycemia Depression Anxiety Arthritis Acid reflux Migraines Diabetes Surgical History No pertinent past surgical history Family History Mother Mental health disorder High blood pressure Diabetes Maternal Aunt Mental health disorder Sister Mental health disorder Father High blood pressure Cardiovascular disease Maternal Grandmother Diabetes Social History Housing: Apartment Alcohol intake: never Patient Tobacco Use Status: Current everyday Tobacco user Cigarettes Per Day: 10 e-Cigarette/Vaping Use: Never Used Use of substances other than those prescribed or required for medical reasons: Yes Substance Use Type: Marijuana service: No Current occupational status: employed 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 Cognitive needs: No Hearing needs: No Vision needs: Yes (Patient wears prescription glasses) Review of Systems Const Denies fatigue, Denies fever(s), Denies night sweats, Denies poor appetite and Reports weight loss (25 lb over the past year) ENT Reports Normal hearing present, Denies dental pain, Denies dysphagia, Denies hearing loss, Denies mouth pain, Denies odynophagia, Denies throat swelling, Denies tongue swelling and Reports other (Dentition adequate) Card Reports chest pain Resp Reports no additional complaints GI Details: Denies abdominal pain, Denies melena, Denies bloating, Denies hematochezia, Denies constipation, Denies GI cramping, Denies dysphagia, Denies excessive flatus, Denies early satiety, Reports heartburn, Denies diarrhea, Denies nausea, Denies odynophagia, Denies vomiting and Denies hematemesis Skin/Breast Denies pruritus, Denies lesions, Denies rash and Denies jaundice Neuro Reports Normal hearing present and Denies Abnormal speech present Endo Denies fatigue Aller/Immun Denies throat swelling and Denies tongue swelling Physical Exam Vital Signs: Last Vital Signs Pulse 94 02/16/25 12:47 BP 148/84 H 02/16/25 12:47 BMI result Body Mass Index 26.9 Const General: cooperative, no acute distress, well developed and well groomed Nutritional Appearance: average body habitus and well nourished Orientation/consciousness: oriented to person, oriented to place and oriented to time Limitations: No language barrier HEENT Head: Yes normocephalic and Yes atraumatic Eyes General: appearance normal, both eyes and all related structures Pupils: Equal, round and reactive pupils present Neck Neck: Yes normal visual inspection and Yes no lymphadenopathy Thyroid: Thyroid normal Resp Effort & Inspection: normal respiratory effort and able to speak in complete sentences Auscultation: clear to auscultation bilaterally Cardio Rate: regular rate Rhythm: regular rhythm Heart sounds: Normal, physiologic split S2 sound present Peripheral pulses: radial pulses present and posterior tibial pulses present GI Inspection: No distended, No Abdominal panniculus present and Yes striae Palpation (GI): Soft to palpation, nontender, no guarding, not rigid and No hepatosplenomegaly present Percussion: Yes normal to percussion Auscultation: normal bowel sounds Rectal Exam - Male: Yes deferred Skin General skin exam: no rashes or lesions noted, turgor normal, skin not dry, no jaundice, No spider nevi and no striae Rashes: no rashes Nails: normal Neuro General: oriented to person, oriented to place and oriented to time Cranial nerves: Yes Equal, round and reactive pupils present and Yes Normal hearing present Speech: No Abnormal speech present Extrem General: Yes normal to inspection, No clubbing, No cyanosis and No edema Psych Appearance: grossly normal and well kempt Mental Status: mental status grossly normal Speech and movement: Normal speech and movement present Affect: normal affect Attitude: cooperative Thought process: Normal thought process present and not confabulating Thought content: Normal thought content present Insight: Good insight present (Psych) Judgement: Good judgement present (Psych) Results Reviewed Results Reviewed: 09/15/24 10:29 WBC 10.7 RBC 4.49 L Hgb 13.5 L Hct 38.0 L MCV 84.6 MCH 30.1 Plt Count 257 Estimated GFR > 60 Total Bilirubin 0.8 Direct Bilirubin 0.2 AST 16 ALT 16 Alkaline Phosphatase 109 Assessment & Plan Assessment & Plan (1) Acid reflux: Code(s): K21.9 - Gastro-esophageal reflux disease without esophagitis Category: Medical (2) Weight loss, abnormal: Comment: 25 lbs over past year Code(s): R63.4 - Abnormal weight loss Category: Medical Plan Subjective Patient presents for evaluation of persistent heartburn and reflux symptoms. Reports a long-standing history of mild heartburn that worsened about one year ago, with episodes severe enough to feel like a heart attack leading to ER visits in January and again in September. Describes near-constant heartburn with regurgitation sensation (food coming up). Symptoms are triggered by foods such as pizza and sauces. [id number] omeprazole ( little purple pill ) provided relief; he took it daily for a time but more recently takes it inconsistently and has not taken it for a couple of weeks. Denies nausea or vomiting. Bowel movements are formed without diarrhea, aside from transient diarrhea when first starting Trulicity which has since resolved. Reports unintentional weight loss of approximately 25 pounds over the past year. 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 He is naive to anesthesia and sedation. He denies any cardiac or respiratory problems. There are no infectious disease problems. He denies any family history of colon or stomach cancer or polyps. Relevant Past Medical, Social, and Family History - Family history: sister with heartburn; sister had cholecystectomy. No known family history of throat or stomach cancer. - Medications relevant to history: metformin (years), glipizide, gabapentin, Trulicity started a couple of months ago. - Prior evaluations: ER visit in September documented non-ischemic EKG; troponin reported normal. Objective - No thyroid enlargement on exam. - Abdominal skin with striae consistent with recent weight loss. - Prior testing reviewed: EKG non-ischemic; troponin normal from September ED visit. - Hemoglobin A1c 8.2% in October; prior values in November 2023 were 9.8% and 9.3%. Assessment & Plan Chronic heartburn with reflux symptoms: Persistent GERD-like symptoms for ~1 year with regurgitation and food-triggered exacerbations; OTC omeprazole previously helpful but used inconsistently. Cardiac etiology appropriately excluded in ED. - Start famotidine (Pepcid) for as-needed symptom control given faster onset relative to omeprazole; will prescribe. If not effective or not covered, consider resuming PPI therapy. - H. pylori breath test performed in clinic today. If positive, will treat with appropriate antibiotic regimen. - Order right upper quadrant ultrasound to evaluate for gallstones. - Order barium swallow to assess for esophageal structural or motility abnormalities (e.g., large hiatal hernia, diverticulum). - Provide dietary guidance on common reflux triggers; avoid identified triggers (e.g., pizza/tomato-based sauces; student support counselor that mint can exacerbate reflux). - Follow up in 3 months to review results and symptom response. Unintentional weight loss (~25 lb over 1 year): Concerning degree of unintentional weight loss. Differential includes effects of suboptimally controlled diabetes versus gastrointestinal pathology. - Schedule upper endoscopy (EGD) and screening colonoscopy (patient age 49 and due for CRC screening) to evaluate for potential GI causes of weight loss and for routine cancer prevention. - Consider CT imaging if indicated after initial testing; will reassess pending results. - Return in 3 months; sooner if red flag symptoms develop. Orders: Orders H Pylori Breath Test Today K21.9 - Gastro-esophageal reflux disease without esophagitis US abdomen complete Today K21.9 - Gastro-esophageal reflux disease without esophagitis [place] barium swallow Today K21.9 - Gastro-esophageal reflux disease without esophagitis Referrals GI Procedure Notification R63.4 - Abnormal weight loss Medications: New peg 3350-electrolytes 236-22.74-6.74 -5.86 gram (Golytely) until fecal effluent is clear; do not exceed a total volume of 2,000 mL 240 mL PO Q10M 4,000 mL 0RF 1 day Z12.11 - Encounter for screening for malignant neoplasm of colon famotidine (Pepcid) 40 mg PO BEDTIME 30 tabs 6RF K21.9 - Gastro-esophageal reflux disease without esophagitis bisacodyl (Dulcolax (bisacodyl)) 10 mg (2 x 5 mg) PO BEDTIME 4 tabs 0RF 2 days Coding Level of Care Code New Pt Level 3 (01805) Diagnoses Acid reflux K21.9 Weight loss, abnormal R63.4
--- OUTSIDE RECORDS SUMMARY | 2025-02-16 16:27 | XMS_ITS | Patient Health Record ---
[facility] Address [address] [place] [address] Care Team Providers Care Watch Band Assembler Name Role Phone Navneet Sood MD Primary Care Provider Suzan Sims Unavailable [phone] Reason For Referral No Information Encounters Encounter Location Date [facility] [address] 04/30/[facility] Suzan Pineda Plan Of Treatment No Information Insurance Providers Payer Name Payer Address Payer Phone Subscriber Number Group Number Insured Name Patient Relationship to Insured Coverage Start Date Coverage End Date [employer] [address] Barbara abbott, [place]Z [id number] [phone] [id number] [place] Self - patient is the insured
== END 2025-02-16 14:12 | disposition home or self-care (01) ==
LOC: HO.HGI 12:42
PROVIDERS: PCP Family Medicine; Visit Provider Nurse Practitioner
DX: K21.9 Gastro-esophageal reflux disease without esophagitis (principal); R63.4 Abnormal weight loss
CPT/HCPCS: 99203